=== PATIENT | female | born 1955 | race Caucasian/White ===

== ENCOUNTER 2022-05-08 16:58 | Emergency (ER) | payer OTHER, SELFPAY ==
[2022-05-08 17:07] VITALS: BP 149/81; PULSE 76; RESP 18; TEMP 36.8; O2SAT 98; BMI 21.1
--- NOTE | 2022-05-08 18:03 | CRLHL7_ITS ---
For Patients: As a result of the Century Cures Act, medical imaging exams and procedure reports are released immediately into your electronic medical record. You may view this report before your referring provider. If you have questions, please contact your health care provider. INDICATION: Fall. TECHNIQUE: Head CT without intravenous contrast. Coronal and sagittal formats. COMPARISON: None available. FINDINGS: Small right frontal scalp injury. No intracranial hemorrhage, extra-axial collection, or evidence of acute cortical infarct. Age-appropriate ventricles and sulci. No mass effect or midline shift. The cranium and orbits are intact. Mild mucosal thickening of the bilateral maxillary sinuses. The mastoid air cells are clear. IMPRESSION: Right frontal scalp injury. No acute intracranial findings. Dictated by Charles Ward MD @ 05/08/2022 6:40:28 PM Please note that all CT scans at this facility use dose modulation, iterative reconstruction, and/or weight-based dosing when appropriate to reduce radiation dose to as low as reasonably achievable. Dictated by: Charles Ward MD @ 05/08/2022 18:40:35 (Electronically Signed)
[2022-05-08 18:24] VITALS: BP 138/73; PULSE 68; RESP 16; O2SAT 98
--- NOTE | 2022-05-08 18:50 | ED_ITS ---
HPI - General Adult General Date Seen: 05/08/22 Chief complaint: Head Injury/Pain Stated complaint: fell, hit head Time Seen by Provider: 05/08/22 17:54 Source: patient History of Present Illness HPI narrative: Patient is a 66-year-old woman who about 1 hour prior to presentation says that she tripped on a rug, she fell forward and fairly forcefully hit her head on a door frame. She feels like she was briefly a little out of it although she did not lose consciousness. She does have a large hematoma on the right side of her forehead. She denies severe headache or neck pain. She has not had any vomiting. Her was concerned and wanted her to get checked out. No seizures, altered mentation, neurologic complaints. She does not take any blood thinners. Generally very healthy. She does take a few medications for hyperte nsion. No history of stroke or other neurologic disease. She does not smoke or drink significantly. Related Data Home Medications Medication Instructions Recorded Confirmed albuterol sulfate 90 mcg/actuation INHALATION 05/08/22 aerosol inhaler Allergies Allergy/AdvReac Type Severity Reaction Status Date / Time No Known Drug Allergies Allergy Verified 05/08/22 17:06 Review of Systems Status of ROS: Reports: 10 or more systems reviewed and unremarkable except as noted in History and below [facility] Social History Smoking Status: Never smoker Do you use any of these nicotine containing products: None Second hand tobacco smoke exposure: No How often do you have a drink containing alcohol: 2-3 times a week How many standard drinks containing alcohol do you have on a typical day: 1 or 2 How often do you have six or more drinks on one occasion: Never AUDIT-C Alcohol total score: 3 Non-prescribed substance use: denies use service: No Exam Narrative: Exam Narrative: Vital signs as noted below. In general, an alert, well-appearing patient. Head: Normocephalic, large hematoma on the right side of her scalp. Tenderness in this area, otherwise nontender. Eyes: Pupils are equal reactive. Extraocular movements are full. Conjunctivae are normal. ENT: Mucous membranes are moist. No hemotympanum. No facial trauma aside from above mentioned hematoma. Neck: Supple without lymphadenopathy. Nontender to palpation. Heart: Regular rate and rhythm. No murmur or rub. Lungs: Clear bilaterally. No increased work of breathing, crackles or wheezes. Abdomen: Soft and nontender. No organomegaly. Extremities: Well perfused. No edema. No calf tenderness. Pulses intact. Neurologic: Patient is alert and oriented to person and place. Speech is fluent. Face is symmetric. Moves all extremities equally. Affect: Normal. Skin: Warm and dry. Well perfused. Const: Vital Signs, click to edit/add: Vital Signs - 24 hr 05/08/22 17:07 05/08/22 18:24 Temperature 98.3 F Pulse Rate [Right Pulse Oximeter] 76 68 Respiratory Rate 18 16 Blood Pressure [Ri ght Upper Arm] 149/81 H 138/73 Pulse Oximetry 98 98 Course Course Hospital Course: Discussed with her that overall her presentation is relatively reassuring, but given her age and large hematoma, I did recommend that we do a CT scan to rule out any intracranial bleeding. By my review, CT scan without contrast is negative for intracranial hemorrhage. Scalp hematoma is seen. Final radiology report is negative for intracranial findings. Reviewed use of ice, reviewed that the hematoma may settle with gravity and she might develop some periorbital contusion. This will likely take a couple weeks to resolve, but should resolve with out further intervention. Ibuprofen or Tylenol if needed for pain. Return for signs of more severe head injury such as severe headache, vomiting, altered mentation etc.. Primary care follow-up if needed further concerns. Vital Signs Vital signs: Initial Vital Signs Temperature 98.3 F 05/08/22 17:07 Temperature Source Temporal Artery Scan 05/08/22 17:07 Pulse Rate 76 05/08/22 17:07 Respiratory Rate 18 05/08/22 17:07 Blood Pressure 149/81 H 05/08/22 17:07 Blood Pressure Mean 103 05/08/22 17:07 Blood Pressure Position Sitting 05/08/22 17:07 Pulse Oximetry 98 05/08/22 17:07 Oxygen Delivery Method 05/08/22 17:07 Vital Signs Temperature 98.3 F 05/08/22 17:07 Pulse Rate 76 05/08/22 17:07 Respiratory Rate 18 05/08/22 17:07 Blood Pressure 149/81 H 05/08/22 17:07 Pulse Oximetry 98 05/08/22 17:07 Temperature 98.3 F 05/08/22 17:07 Pulse Rate 68 05/08/22 18:24 Respiratory Rate 16 05/08/22 18:24 Blood Pressure 138/73 05/08/22 18:24 Pulse Oximetry 98 05/08/22 18:24 Discharge Plan Discharge Clinical Impression: Hematoma of frontal scalp Patient Disposition: Home, Self-Care Condition: Stable Instructions: Scalp Contusion in Adults (ED) Additional Instructions: Ice to affected area over the next couple of days will help with swelling. Ibuprofen or Tylenol if needed. Return for signs of more serious head injury such as severe headache, vomiting, confusion. Prescriptions: No Action albuterol sulfate 90 mcg/actuation HFA aerosol inhaler INHALATION 0RF Label Comments: INHALE 2 PUFFS EVERY 4 HOURS NEEDED Follow Up/Referrals: Atif Ayon MD [Primary Care Provider] - Stand Alone Forms: [facility] Inst[facility]
[2022-05-08 19:16] VITALS: BP 135/70; PULSE 78; RESP 16; TEMP 36.8
== END 2022-05-08 19:16 | disposition home or self-care (01) ==
LOC: ED 19:11
PROVIDERS: Emergency Provider Emergency Medicine; PCP Family Medicine
DX: S00.83XA Contusion of other part of head, initial encounter (principal); W01.10XA Fall on same level from slipping, tripping and stumbling with subsequent striking against unspecified object, initial encounter
CPT/HCPCS: 70450; 99283; 99284

== ENCOUNTER 2022-08-20 10:40 | Outpatient (CLI) | payer OTHER, SELFPAY ==
--- OUTSIDE RECORDS SUMMARY | 2022-08-20 08:04 | XMS_ITS | Encounter Summary ---
:1955 Author Organization [facility] Address [address] [place] [address]. [place] [address] Care Team Providers Name Role Phone Sandra Narvaez MD Primary Care Provider Encounter Details Date Type Department Care Team Description 04/03/2022 Travel Social History Tobacco Use Types Packs/Day Years Used Date Smoking Tobacco: Never Smokeless Tobacco: Never Alcohol Use Standard Drinks/Week Comments Yes 0 (1 standard drink = 0.6 oz pure alcoho l) very little Sex Assigned at Date Recorded Not on file COVID-19 Exposure Response Date Recorded In the last 10 days, have you been in contact with No / Unsu re 04/03/2022 10:42 AM CDT someone who was confirmed or suspected to have Coronavirus/COVID-19? documented as of this encounter Plan of Treatment Not on filedocumented as of this encounter Visit Diagnoses Not on filedocumented in this encounter Care Teams Structural Fitter Relationship Specialty Start Date End Date Sandra Narvaez MD PCP - General business teacher 07/11/[address] [phone] documented as of this encounter
--- OUTSIDE RECORDS SUMMARY | 2022-08-20 08:04 | XMS_ITS | Encounter Summary ---
:1955 Author Organization [facility] Address [address] [place] [address]. [place] [address] Care Team Providers Name Role Phone Sandra Narvaez MD Primary Care Provider [phone] Reason for Visit (Routine) - Closed Specialty Diagnoses / Procedures Referred By Contact Refer red To Contact Radiology / Radiology. Procedures Breast Center US BREAST CLIP PLCMT [address], [address] LEFT [address] [place] [address] Phone: Fax: Referral ID Status Reason Start Date Expiration Date Visits Requ ested Visits Authorized [id number] Closed 07/14/2013 07/14/2014 1 1 Encounter Details Date Type Department Care Team Description 07/15/2013 Hospital Encounter [facility] Violet Narvaez Breast lump [facility] MD Julissa [address], [address] [place] [address] [place] [address] [phone] Social History Tobacco Use Types Packs/Day Years Used Date Smoking Tobacco: Never Assessed Sex Assigned at Date Recorded Not on file documented as of this encounter Plan of Treatment Not on filedocumented as of this encounter Procedures Procedure Name Priority Date/Time Associated Diagnosis Comme nts US BREAST CLIP Routine 07/15/2013 1:39 PM Breast lump Results for this PLACEMENT W BIOPSY CDT procedure are in LEFT the results section. documented in this encounter Results US Breast Clip Placement w Biopsy Left (07/15/2013 1:39 PM CDT) Anatomical Region Laterality Modality Breast Left Ultrasound Specimen (Source) Anatomical Location Collection Method / Collectio n Time Received Time / Laterality Volume Addenda Addendum by Kate White MD on 3:36 PM CDT PATHOLOGY CORRELATION AND FOLLOWUP RECOM MENDATION: The pathology diagnosis is benign fibroadenoma; no at[place] or malignancy. This is concordant. I now recommend screening ma mmography in one year unless a new clinical issue develops in the int erim. KATE WHITE MD Narrative 07/15/2013 2:14 PM CDT ULTRASOUND-GUIDED CORE BIOPSY, LEFT BREAST; MARKER PLACEMENT; POST-BIOPSY LEFT DIGITAL MAMMOGRAM - Oct ailyn 2012 INDICATION FOR PROCEDURE: Mildly suspici ous 1 cm hypoechoic nodule in the left breast at 2:30 o'clock 3 cm fro m the nipple. PROCEDURE: ? Approximately 3 mL lido whitney without epinephrine was infiltrated for local anesthetic and a s kin lupis was made through which a 13-gauge trocar was introduced v ia oblique caudocranial approach and its tip was placed adjacent to the lesion. A series of 4 samples were obtained with a 14-gauge co re-cutting needle. A ribbon-shaped metallic marker was deploy ed to savannah the lesion. She tolerated the procedure without difficul ty and there was no immediate complication. Post-biopsy left digital mammogram showe d the marker embedded in the mammographic nodular lesion. KATE WHITE MD Procedure Note Kate White MD - 07/15/2013Forma tting of this note might be different from the original. ULTRASOUND-GUIDED CORE BIOPSY, LEFT [address] ST; MARKER PLACEMENT; POST-BIOPSY LEFT DIGITAL MAMMOGRAM - Oct ailyn 2012 INDICATION FOR PROCEDURE: Mildly suspici ous 1 cm hypoechoic nodule in the left breast at 2:30 o'clock 3 cm fro m the nipple. PROCEDURE: Approximately 3 mL lidocaine without epinephrine was infiltrated for local anesthetic and a s kin lupis was made through which a 13-gauge trocar was introduced v ia oblique caudocranial approach and its tip was placed adjacent to the lesion. A series of 4 samples were obtained with a 14-gauge co re-cutting needle. A ribbon-shaped metallic marker was deploy ed to savannah the lesion. She tolerated the procedure without difficul ty and there was no immediate complication. Post-biopsy left digital mammogram showe d the marker embedded in the mammographic nodular lesion. KATE WHITE MD Sandra Narvaez MD IMG US ORDERABLES documented in this encounter Visit Diagnoses Diagnosis Breast lump Lump or mass in breast documented in this encounter Care Teams Emergency Room Doctor Relationship Specialty Start Date End Date Sandra Narvaez MD PCP - General project production engineer 07/11/[address] [address] documented as of this encounter
--- OUTSIDE RECORDS SUMMARY | 2022-08-20 08:04 | XMS_ITS | Encounter Summary ---
:1955 Author Organization [facility] Address [address] [place] [address]. [place] [address] Care Team Providers Name Role Phone Sandra Narvaez MD Primary Care Provider [phone] Reason for Visit (Routine) - Closed Specialty Diagnoses / Procedures Referred By Contact Refer red To Contact Radiology / Radiology. Diagnoses sb pt[facility] Procedures MA SCREENING BILATERAL W/ ZIGGY [address] [facility], [address] [place] [address] Phone: Fax: Referral ID Status Reason Start Date Expiration Date Visits Requ ested Visits Authorized [id number] Closed 06/25/2017 06/25/2018 1 1 Encounter Details Date Type Department Care Team Description 06/27/2017 Hospital Encounter [facility] for screening [place] [facility] Sandra Costa MD mammogram Center [address] [facility] [address] [facility], [address] [place] [phone] Social History Tobacco Use Types Packs/Day Years Used Date Smoking Tobacco: Never Assessed Sex Assigned at Date Recorded Not on file documented as of this encounter Plan of Treatment Not on filedocumented as of this encounter Procedures Procedure Name Priority Date/Time Associated Diagnosis Comme nts MA SCREENING Routine 06/27/2017 11:00 AM Visit for screening R esults for this BILATERAL W/ ZIGGY CDT mammogram procedure are in the results section. documented in this encounter Results MA Screen Bilateral w/Ziggy (06/27/2017 11:00 AM CDT) Anatomical Region Laterality Modality Breast Bilateral Mammography Specimen (Source) Anatomical Location Collection Method / Collectio n Time Received Time / Laterality Volume Impressions 06/27/2017 11:04 AM CDT IMPRESSION: BI-RADS CATEGORY: 1 - ??Negative. RECOMMENDED FOLLOW-UP: Annual Mammograph y. NURA MOHAMUD MD Narrative 06/27/2017 11:04 AM CDT SCREENING MAMMOGRAM, BILATERAL, DIGITAL w/CAD and TOMOSYNTHESIS, 06/27/2017 11:03 AM BREAST DENSITY: Scattered fibroglandular densities. CLINICAL INFORMATION: ??Encounter for sc reening mammogram for malignant neoplasm of breast, 08/03/2016, 07/13/20 13 FINDINGS: Negative. Stable exam. Screeni ng exam in one year recommended. Procedure Note Nura Mohamud MD - 06/27/2017Formatt ing of this note might be different from the original. SCREENING MAMMOGRAM, BILATERAL, DIGITAL w/CAD and TOMOSYNTHESIS, 06/27/2017 11:03 AM BREAST DENSITY: Scattered fibroglandular densities. CLINICAL INFORMATION: Encounter for scre ening mammogram for malignant neoplasm of breast, 08/03/2016, 07/13/20 13 FINDINGS: Negative. Stable exam. Screeni ng exam in one year recommended. IMPRESSION: BI-RADS CATEGORY: 1 - Negati ve. RECOMMENDED FOLLOW-UP: Annual Mammograph y. NURA MOHAMUD MD Sandra Narvaez MD IMG MAMMOGRAPHY ORDERABLES documented in this encounter Visit Diagnoses Diagnosis Visit for screening mammogram Other screening mammogram documented in this encounter Care Teams Library Services Coordinator Relationship Specialty Start Date End Date Sandra Narvaez MD PCP - General publicity agent 07/11/[address] [place] [address] [place], [place] [address] documented as of this encounter
--- OUTSIDE RECORDS SUMMARY | 2022-08-20 08:04 | XMS_ITS | Encounter Summary ---
:1955 Author Organization [facility] Address [address] [place] [address]. [place] [address] Care Team Providers Name Role Phone Sandra Narvaez MD Primary Care Provider [phone] Encounter Details Date Type Department Care Team Description 07/14/[address] [facility], [facility] [facility] mammogram [facility] Breast [place] Sandra Costa MD [address] [facility], [address] [place] [place] [phone] Social History Tobacco Use Types Packs/Day Years Used Date Smoking Tobacco: Never Assessed Sex Assigned at Date Recorded Not on file documented as of this encounter Plan of Treatment Not on filedocumented as of this encounter Procedures Procedure Name Priority Date/Time Associated Diagnosis Comme [facility] US BREAST YOUNG Routine 07/14/2013 2:42 PM Abnormal mammogram Results for this LEFT CDT procedure are i n the results section. documented in this encounter Results US Breast Young Left (07/14/2013 2:42 PM CDT) Anatomical Region Laterality Modality Breast Left Ultrasound Specimen (Source) Anatomical Location Collection Method / Collectio n Time Received Time / Laterality Volume Impressions 07/14/2013 3:10 PM CDT IMPRESSION: BI-RADS CATEGORY 4, SUSPICIOUS. A 1 cm hypoechoic smoothly marginated lateral left breast nodule corresponds with the screen detected nodule. RECOMMENDATION: She will be scheduled fo r ultrasound-guided core biopsy. KATE WHITE MD Narrative 07/14/2013 3:10 PM CDT ULTRASOUND, left breast - July 14, 2013 REASON FOR EXAM: Recalled from her recen t screening mammogram to evaluate left breast nodule. No reported clinical symptoms. COMPARISON: Yesterday's screening mammog miguel a, and older screening mammograms from 2011 and 2010. FINDINGS: ??Focused ultrasound lateral l eft breast shows at 2:30 o'clock 3 cm from the nipple a very smoo thly marginated [id number] homogeneously hypoechoic 1 cm nodule. Imaging characteristics are low suspicion but th is lesion was not present on older mammograms and therefore it has to be considered as indeterminate and core needle biopsy is now appropriate. I discussed the findings with her and we will schedu le her for that procedure. Procedure Note Kate White MD - 07/14/2013Forma tting of this note might be different from the original. ULTRASOUND, left breast - July 14 REASON FOR EXAM: Recalled from her recen t screening mammogram to evaluate left breast nodule. No reported clinical symptoms. COMPARISON: Yesterday's screening mammog miguel a, and older screening mammograms from 2011 and 2010. FINDINGS: Focused ultrasound lateral lef t breast shows at 2:30 o'clock 3 cm from the nipple a very smoo thly marginated [id number] homogeneously hypoechoic 1 cm nodule. Imaging characteristics are low suspicion but th is lesion was not present on older mammograms and therefore it has to be considered as indeterminate and core needle biopsy is now appropriate. I discussed the findings with her and we will schedu le her for that procedure. IMPRESSION IMPRESSION: BI-RADS CATEGORY 4, SUSPICIO US. A 1 cm hypoechoic smoothly marginated lateral left breast nodule corresponds with the screen detected nodule. RECOMMENDATION: She will be scheduled fo r ultrasound-guided core biopsy. KATE WHITE MD Sandra Narvaez MD IMG US ORDERABLES documented in this encounter Visit Diagnoses Diagnosis Abnormal mammogram Abnormal mammogram, unspecified documented in this encounter Care Teams Quality Tester Relationship Specialty Start Date End Date Sandra Narvaez MD PCP - General hypo dipper 07/11/[address] [place] [address] [place] [phone] documented as of this encounter
--- OUTSIDE RECORDS SUMMARY | 2022-08-20 08:04 | XMS_ITS | Encounter Summary ---
:1955 Author Organization [facility] Address [facility] [place] [address] Care Team Providers Name Role Phone Sandra Narvaez MD Primary Care Provider [phone] Reason for Referral Diagnostic Imaging Mammo (Routine) - Pending Review Specialty Diagnoses / Procedures Referred By Contact Refer red To Contact Diagnoses Breast cancer screening by mammogram Sandra Narvaez MD Procedures MA Screen Bilateral w/Ziggy [address] [address] Referral ID Status Reason Start Date Expiration Date Visits V isits Requested Authorized [id number] Pending 03/26/2022 03/26/2023 1 1 Review Reason for Visit Diagnostic Imaging Mammo (Routine) - Pending Review Specialty Diagnoses / Procedures Referred By Contact Refer red To Contact Diagnoses Breast cancer screening by mammogram Sandra Narvaez MD Procedures MA Screen Bilateral w/Ziggy [address] [address] Referral ID Status Reason Start Date Expiration Date Visits V isits Requested Authorized [id number] Pending 03/26/2022 03/26/2023 1 1 Review Encounter Details Date Type Department Care Team Description 04/03/2022 Hospital Encounter [facility] Breast Sandra Costa MD screening by Center [address] mammogram [address] [place] [phone] Social History Tobacco Use [...] have Coronavirus/COVID-19? documented as of this encounter Medications at Time of Discharge Medication Sig Dispensed Refills Start Date End Date Calcium Take 1 tablet by 0 01/23/2018 Carb-Cholecalciferol mouth daily (CALCIUM + D3) 600-800 MG-UNIT TABSIndications: Hair thinning, Other fatigue fexofenadine (COLEEN) Take 1 tablet (180 90 tablet 3 01/23 180 MG tabletIndications: mg) by mouth daily as Hair thinning, Other needed for allergies fatigue Magnesium Citrate 125 MG Take 250 mg by mouth 0 0 01/23/2018 CAPSIndications: Hair daily thinning, Other fatigue naproxen sodium (ANAPROX) Take by mouth 2 times 60 tablet 0 01/23/2018 220 MG tabletIndications: daily (with meals) Hair thinning, Other fatigue omega 3 1000 MG Take 2 g by mouth 2 90 capsule 0 01/23/2018 CAPSIndications: Hair times daily thinning, Other fatigue progesterone 200 MG/GM Apply topically daily 0 (CMPD) topical creamIndications: Hair thinning, Other fatigue Turmeric 500 MG Take 500 mg by mouth 0 01/23/2018 CAPSIndications: Hair daily thinning, Other fatigue documented as of this encounter Plan of Treatment Not on filedocumented as of this encounter Procedures Procedure Name Priority Date/Time Associated Diagnosis Comme nts MA SCREENING Routine 04/03/2022 11:02 AM Breast cancer Results for this BILATERAL W/ ZIGGY CDT screening by procedure are in mammogram the results section. documented in this encounter Results MA Screen Bilateral w/Ziggy (04/03/2022 11:02 AM CDT) Anatomical Region Laterality Modality Breast Bilateral Mammography Specimen (Source) Anatomical Location Collection Method / Collectio n Time Received Time / Laterality Volume Narrative 04/03/2022 1:00 PM CDT BILATERAL FULL FIELD DIGITAL SCREENING MAMMOGRAM WITH TOMOSYNTHESIS Performed on: 04/03/22 Compared to: 05/04/2021, 05/03/2020, , 06/04/2018, and 06/27/2017 Technique: ??This study was evaluated wi th the assistance of Computer-Aided Detection. ??Breast Tomosynthesis was us ed in interpretation. Findings: The breasts have scattered are as of fibroglandular density. ?? There is no radiographic evidence of mal ignancy. IMPRESSION: ACR BI-RADS Category 1: Nega tive RECOMMENDED FOLLOW-UP: Annual routine sc reening mammogram The results and recommendations of this examination will be communicated to the patient. Sandra Narvaez MD IMG MAMMOGRAPHY ORDERABLES documented in this encounter Visit Diagnoses Diagnosis Breast cancer screening by mammogram documented in this encounter Care Teams Experimental Rocketsled Mechanic Relationship Specialty Start Date End Date Sandra Narvaez MD PCP - General community organization worker 07/11/[address] [phone] documented as of this encounter
--- OUTSIDE RECORDS SUMMARY | 2022-08-20 08:04 | XMS_ITS | Encounter Summary ---
:1955 Author Organization [facility] Address [address] [place] [address]. [place] [address] Care Team Providers Name Role Phone Sandra Barrios MD Primary Care Provider [phone] Reason for Visit (Routine) - Closed Specialty Diagnoses / Procedures Referred By Contact Refer red To Contact Radiology / Radiology. Procedures Breast Center BREAST [address], [address] [place] [address] Phone: Fax: Referral ID Status Reason Start Date Expiration Date Visits Requ ested Visits Authorized [id number] Closed 07/14/2013 07/14/2014 1 1 Encounter Details Date Type Department Care Team Description 07/15/2013 Hospital Encounter [facility] Violet Barrios Breast lump [facility] MD Julissa [address], [address] [facility] [address] [place] [address] [phone] Social History Tobacco Use Types Packs/Day Years Used Date Smoking Tobacco: Never Assessed Sex Assigned at Date Recorded Not on file documented as of this encounter Progress Notes Radha Matthews RN - 07/15/2013 1:53 PM CDT Pt tolerated procedure well and was discharged in satisfactory condition Radha Matthews RN Nurse Navigator [facility] documented in this encounter Plan of Treatment Not on filedocumented as of this encounter Procedures Procedure Name Priority Date/Time Associated Diagnosis Comme nts US BREAST BIOPSY LT Routine 07/15/2013 1:39 PM Breast lump Re sults for this CDT procedure are i n the results section. SURGICAL PATHOLOGY Routine 07/15/2013 1:25 PM Res ults for this EXAM CDT procedure are i n the results section. 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 This is concordant. I now recommend screening ma mmography in one year unless a new clinical issue develops in the int erim. ADRIAN WHITE MD Narrative 07/15/2013 2:14 PM CDT [...] marker embedded in the mammographic nodular lesion. ADRIAN WHITE MD Procedure Note dArian White MD - 07/15/2013Forma tting of this [...] marker embedded in the mammographic nodular lesion. ADRIAN WHITE MD Sandra Barrios MD IMG US ORDERABLES Surgical pathology exam (07/15/2013 1:25 PM CDT) Component Value Ref Test Analysis Performed At [facility] Range Method Time Signature Copath Report Patient Name: JANEL KEN MR#: [id number] Specimen #: [id number] Collected: 07/15/2013 Received: 07/15/2013 Reported: 07/16/2013 16:20 Ordering Phy(s): SANDRA BARRIOS Additional Phy(s): ADRIAN WHITE SPECIMEN(S): Left ultrasound guided breast needle biopsy FINAL DIAGNOSIS: Breast, left, 10 mm nodule at 2:30, 3 cm from nipple, ultras ound-guided needle biopsy - ? 1. ??Fibroadenoma. ? 2. ??Negative for atypia or malignancy. Electronically signed out by: Eunice Hearn M.D. CLINICAL HISTORY: Left breast solid nodule. ??10 mm. ??Intermediate index of s uspicion. GROSS: The specimen received in formalin and labeled left breast ultrasound-guided biopsy at 2:30, 3 cm from nipple, consist s of four yellow-pink 0.1 cm wide needle biopsy cores of soft tissue r anging in length from 1 to 1.5 cm. ??ES, one cassette. ??SA/kd MICROSCOPIC: Microscopic examination is performed. Internal consultation is obtained. /nichol DT/07-16-13 TESTING LAB LOCATION: [address] ??[id number] COLLECTION SITE: Client: [facility] Location: [facility] (R) Specimen Anatomical Collection Method Collection Time Receive d Time (Source) Location / / Volume Laterality 07/15/2013 1:25 PM 3 1:52 CDT PM CDT Sandra Barrios MD LAB - [facility] Performing Organization Address City/State/ZIP Code Phon e Number COPATH documented in this encounter Visit Diagnoses Diagnosis Breast lump Lump or mass in breast documented in this encounter Care Teams Professor Of Social Work Relationship Specialty Start Date End Date Sandra Barrios MD PCP - General finisher wallboard and plasterboard 07/11/12 [address] [facility] [address] [place] [phone] documented as of this encounter
--- OUTSIDE RECORDS SUMMARY | 2022-08-20 08:04 | XMS_ITS | Encounter Summary ---
:1955 Author Organization [facility] Address [address] [place] [address]. [place] [address] Care Team Providers Name Role Phone Sandra Narvaez MD Primary Care Provider Reason for Referral Diagnostic Imaging Mammo (Routine) - Closed Specialty Diagnoses / Procedures Referred By Contact Refer red To Contact Diagnoses Visit for screening mammogram Sandra Narvaez MD Procedures MA Screen Bilateral w/Ziggy [address] [place] [address] Referral ID Status Reason Start Date Expiration Date Visits Requ ested Visits Authorized [id number] Closed 04/20/2021 04/20/2022 1 1 Reason for Visit Diagnostic Imaging Mammo (Routine) - Closed Specialty Diagnoses / Procedures Referred By Contact Refer red To Contact Diagnoses Visit for screening mammogram Sandra Narvaez MD Procedures MA Screen Bilateral w/Ziggy [address] [place] [address] Referral ID Status Reason Start Date Expiration Date Visits Requ ested Visits Authorized [id number] Closed 04/20/2021 04/20/2022 1 1 Encounter Details Date Type Department Care Team Description 05/04/2021 Hospital Encounter [facility] Bhumika Narvaez for screening [facility] Sandra Costa MD mammogram Center [address] [facility], [address] [place] [address] Social History Tobacco Use Types Packs/Day Years Used Date Smoking Tobacco: Never Smokeless Tobacco: Never Alcohol Use Standard Drinks/Week Comments Yes 0 (1 standard drink = 0.6 oz pure alcoho l) very little Sex Assigned at Date Recorded Not on file COVID-19 Exposure Response Date Recorded In the last month, have you been in contact with No / Unsure 05/04/2021 11:20 AM CDT someone who was confirmed or suspected to have Coronavirus / COVID-19? documented as of this encounter Medications at [...] Name Priority Date/Time Associated Diagnosis Comme nts [place] SCREENING Routine 05/04/2021 12:03 PM Visit for screening R esults for this BILATERAL W/ ZIGGY CDT mammogram procedure are in the results section. documented in this encounter Results MA Screen Bilateral w/Ziggy (05/04/2021 12:03 PM CDT) Anatomical Region Laterality Modality Breast Bilateral Mammography Specimen (Source) Anatomical Location Collection Method / Collectio n Time Received Time / Laterality Volume Narrative 05/04/2021 1:17 PM CDT BILATERAL FULL FIELD DIGITAL SCREENING MAMMOGRAM WITH TOMOSYNTHESIS Performed on: 05/04/21 Compared to: 05/03/2020 MA Screen Bilate ral w/Ziggy and 06/04/2018 MA Screen Bilateral w/Ziggy Findings: The breasts have scattered are as of fibroglandular density. This study was evaluated with the assistance of Computer-Aided Detection. ?? Breast Tomosynthesis was used in interpr etation. There is no radiographic evidence of malignancy. IMPRESSION: ACR BI-RADS Category 1: Nega tive RECOMMENDED FOLLOW-UP: Annual routine sc reening mammogram The results and recommendations of this examination will be communicated to the patient. Sandra Narvaez MD IMG MAMMOGRAPHY ORDERABLES documented in this encounter Visit Diagnoses Diagnosis Visit for screening mammogram Other screening mammogram documented in this encounter Care Teams Spring Upholsterer Relationship Specialty Start Date End Date Sandra Narvaez MD PCP - General acrobatic dancer 07/11/[address] [facility] [address] [place] [phone] documented as of this encounter
--- OUTSIDE RECORDS SUMMARY | 2022-08-20 08:04 | XMS_ITS | Encounter Summary ---
:1955 Author Organization [facility] Address [address] [place] [address]. [place] [address] Care Team Providers Name Role Phone Unavailable Primary Care Provider Unavailable Encounter Details Date Type Department Care Team Description 09/17/2006 Results Only [facility] Rica Narvaez, Hospital Results [address] [place] [address] (Wo rk) Social History Tobacco Use Types Packs/Day Years Used Date Smoking Tobacco: Never Assessed Sex Assigned at Date Recorded Not on file documented as of this encounter Plan of Treatment Not on filedocumented as of this encounter Procedures Procedure Name Priority Date/Time Associated Diagnosis Comme nts C MAMMOGRAM, Routine 09/17/2006 11:33 AM Results for this SCREENING SALES CORRESPONDENCE CLERK procedure are i n the results section. documented in this encounter Results MAMMOGRAM, SCREENING (09/17/2006 11:33 AM SALES CORRESPONDENCE CLERK) Anatomical Region Laterality Modality Other Specimen (Source) Anatomical Collection Method Collection Time Re ceived Time Location / / Volume Laterality 09/17/2006 11:33 AM SALES CORRESPONDENCE CLERK Impressions 09/18/2006 2:54 PM SALES CORRESPONDENCE CLERK Exam: Bilateral screening mammography History/Comparison: ??ROUTINE 08/06/05, 10/29/00 Breast parenchyma: heterogeneously dense Findings: Negative. . ?? Impression: Category 1. Negative. This exam was evaluated with the assista nce of computer aided detection ??(CAD). Sandra Narvaez MD SPECIAL IMAGING STUDIES documented in this encounter Visit Diagnoses Not on filedocumented in this encounter
--- OUTSIDE RECORDS SUMMARY | 2022-08-20 08:04 | XMS_ITS | Encounter Summary ---
:1955 Author Organization [facility] Address [address] [place] [address]. [place] [address] Care Team Providers Name Role Phone Sandra Narvaez MD Primary Care Provider [phone] Reason for Visit (Routine) - Closed Specialty Diagnoses / Procedures Referred By Contact Refer red To Contact Radiology / Radiology. Diagnoses Prev epic ziggy info given Breast Center Procedures MA SCREENING DIGITAL BILATERAL [address] [facility], [address] [place] [address] Phone: Fax: Referral ID Status Reason Start Date Expiration Date Visits Requ ested Visits Authorized [id number] Closed 07/21/2015 07/20/2016 1 1 Encounter Details Date Type Department Care Team Description 08/01/2015 Hospital Encounter [facility] for screening [facility] Sandra Costa MD mammogram Center [address] [facility] [address] [place] [address] Social History Tobacco Use Types Packs/Day Years Used Date Smoking Tobacco: Never Assessed Sex Assigned at Date Recorded Not on file documented as of this encounter Plan of Treatment Not on filedocumented as of this encounter Procedures Procedure Name Priority Date/Time Associated Diagnosis Comme nts MA SCREENING Routine 08/01/2015 2:20 PM Visit for screening Re sults for this BILATERAL W/ ZIGGY CDT mammogram procedure are in the results section. documented in this encounter Results MA Screen Bilateral w/Ziggy (08/01/2015 2:20 PM CDT) Anatomical Region Laterality Modality Breast Bilateral Mammography Specimen (Source) Anatomical Location Collection Method / Collectio n Time Received Time / Laterality Volume Impressions 08/01/2015 2:26 PM CDT IMPRESSION: BI-RADS CATEGORY: 2 - Benign. RECOMMENDED FOLLOW-UP: Annual Mammograph y. ?? NURA MOHAMUD MD Narrative 08/01/2015 2:26 PM CDT SCREENING MAMMOGRAM, BILATERAL, DIGITAL w/CAD and TOMOSYNTHESIS, 08/01/2015 2:25 PM BREAST DENSITY: Scattered fibroglandular densities. CLINICAL INFORMATION: ??Encounter for sc reening mammogram for malignant neoplasm of breast, 07/13/2013, 05/23/20 10 FINDINGS: Stable nodule left upper-outer breast. Bilateral exam otherwise unremarkable. Procedure Note Nura Mohamud MD - 08/01/2015Formatt ing of this note might be different from the original. SCREENING MAMMOGRAM, BILATERAL, DIGITAL w/CAD and TOMOSYNTHESIS, 08/01/2015 2:25 PM BREAST DENSITY: Scattered fibroglandular densities. CLINICAL INFORMATION: Encounter for scre ening mammogram for malignant neoplasm of breast, 07/13/2013, 05/23/20 10 FINDINGS: Stable nodule left upper-outer breast. Bilateral exam otherwise unremarkable. IMPRESSION IMPRESSION: BI-RADS CATEGORY: 2 - Benign . RECOMMENDED FOLLOW-UP: Annual Mammograph y. NURA MOHAMUD MD Sandra Narvaez MD IMG MAMMOGRAPHY ORDERABLES documented in this encounter Visit Diagnoses Diagnosis Visit for screening mammogram Other screening mammogram documented in this encounter Care Teams Psychology Teacher Relationship Specialty Start Date End Date Sandra Narvaez MD PCP - General manager pet 07/11/[address] [place] [address] documented as of this encounter
--- OUTSIDE RECORDS SUMMARY | 2022-08-20 08:04 | XMS_ITS | Encounter Summary ---
:1955 Author Organization [facility] Address [address] [place] [address]. [place] [address] Care Team Providers Name Role Phone Unavailable Primary Care Provider Unavailable Encounter Details Date Type Department Care Team Description 07/06/2011 Results Only [facility] Rica Narvaez, Hospital Results [address] [place] [address] (Wo rk) Social History Tobacco Use Types Packs/Day Years Used Date Smoking Tobacco: Never Assessed Sex Assigned at Date Recorded Not on file documented as of this encounter Plan of Treatment Not on filedocumented as of this encounter Procedures Procedure Name Priority Date/Time Associated Comments Diagnosis MA DIAGNOSTIC Routine 07/06/2011 11:16 AM Results for this DIGITAL RIGHT CDT procedure are in the results section. documented in this encounter Results Mammo diagnostic Digital right* (07/06/2011 11:16 AM CDT) Anatomical Region Laterality Modality Breast Right Other Specimen (Source) Anatomical Collection Method Collection Time Re ceived Time Location / / Volume Laterality 07/06/2011 11:16 AM CDT Impressions 07/06/2011 3:35 PM CDT DIAGNOSTIC MAMMOGRAM, RIGHT, DIGITAL w/C AD - July 06, 2011 HISTORY: Recalled from screening mammogr am regarding a 1.0 cm round asymmetry in the right breast. COMPARISON: Screening mammograms 06/29/20 11, 05/23/2010, 02/21/2009, 02/17/2008. FINDINGS: Diagnostic views of the right breast were obtained. Screening detected asymmetry is not rede monstrated on today's repeat full field views. Similarly, the area in question effaces completely with compression. No persistent mammogra phic abnormality to suggest malignancy. IMPRESSION: BI-RADS 1, NEGATIVE. No evidence of malignancy. Screening det ected asymmetry reflects summation artifact. As long as the patie nt's physical exam remains stable, routine annual screening mammogr aphy is recommended. The results and recommendation were communic ated to the patient at the conclusion of today's appointment. RECOMMENDATION: Annual screening mammogr aphy. Sandra Narvaez MD IMG MAMMOGRAPHY ORDERABLES documented in this encounter Visit Diagnoses Not on filedocumented in this encounter
--- OUTSIDE RECORDS SUMMARY | 2022-08-20 08:04 | XMS_ITS | Encounter Summary ---
:1955 Author Organization [facility] Address [address] [place] [address]. [place] [address] Care Team Providers Name Role Phone Sandra Narvaez MD Primary Care Provider [phone] Reason for Visit (Routine) - Closed Specialty Diagnoses / Procedures Referred By Contact Refer red To Contact Radiology / Radiology. Procedures Breast Center MA SCREENING DIGITAL [address], [address] [place] [address] Phone: Fax: Referral ID Status Reason Start Date Expiration Date Visits Requ ested Visits Authorized [id number] Closed 07/06/2013 07/06/2014 1 1 Encounter Details Date Type Department Care Team Description 07/13/2013 Hospital Encounter [facility] Zohreh Narvaez gynecological [facility] Sandra Costa MD examination Center [address] [place] [address] [place] [address] Social History Tobacco Use Types Packs/Day Years Used Date Smoking Tobacco: Never Assessed Sex Assigned at Date Recorded Not on file documented as of this encounter Plan of Treatment Not on filedocumented as of this encounter Procedures Procedure Name Priority Date/Time Associated Diagnosis Comme nts MA SCREENING Routine 07/13/2013 11:45 Routine gynecological Re sults for this DIGITAL BILATERAL AM CDT examination procedure are in the results section. documented in this encounter Results MA Screening Digital Bilateral (07/13/2013 11:45 AM CDT) Anatomical Region Laterality Modality Breast Bilateral Mammography Specimen (Source) Anatomical Location Collection Method / Collectio n Time Received Time / Laterality Volume Impressions 07/13/2013 12:32 PM CDT IMPRESSION: BI-RADS CATEGORY 0, INCOMPLETE, NEED ADDITIONAL IMAGING EVALUATION. RECOMMENDATION: Ultrasound of the left b reast; additional mammographic views may also be necessary . We will attempt to contact the patient to return for further imagin g assessment. KATE WHITE MD Narrative 07/13/2013 12:32 PM CDT SCREENING MAMMOGRAM, BILATERAL, DIGITAL w/ CAD ??- ??July 13, 2013 BREAST SYMPTOMS: None reported. COMPARISON: Screening mammograms dating back to 2007 most recently dated 07/11/2012. PARENCHYMAL PATTERN: Scattered fibroglan dular densities. COMMENTS: Obscured lateral left breast n odular asymmetry warrants further evaluation beginning with ultras ound because it could be a cyst; additional mammographic views may also be needed. Right breast is unremarkable. Procedure Note Kate White MD - 07/13/2013Forma tting of this note might be different from the original. SCREENING MAMMOGRAM, BILATERAL, DIGITAL w/ CAD - July 13, 2013 BREAST SYMPTOMS: None reported. COMPARISON: Screening mammograms dating back to 2007 most recently dated 07/11/2012. PARENCHYMAL PATTERN: Scattered fibroglan dular densities. COMMENTS: Obscured lateral left breast n odular asymmetry warrants further evaluation beginning with ultras ound because it could be a cyst; additional mammographic views may also be needed. Right breast is unremarkable. IMPRESSION IMPRESSION: BI-RADS CATEGORY 0, INCOMPLE TE, NEED ADDITIONAL IMAGING EVALUATION. RECOMMENDATION: Ultrasound of the left b reast; additional mammographic views may also be necessary . We will attempt to contact the patient to return for further imagin g assessment. KATE WHITE MD Sandra Narvaez MD IMG MAMMOGRAPHY ORDERABLES documented in this encounter Visit Diagnoses Diagnosis Routine gynecological examination documented in this encounter Care Teams Navigation Teacher Relationship Specialty Start Date End Date Sandra Narvaez MD PCP - General insurance sales associate 07/11/[address] [place] [phone] documented as of this encounter
--- OUTSIDE RECORDS SUMMARY | 2022-08-20 08:04 | XMS_ITS | Encounter Summary ---
:1955 Author Organization [facility] Address [address] [place] [address]. [place] [address] Care Team Providers Name Role Phone Unavailable Primary Care Provider Unavailable Encounter Details Date Type Department Care Team Description 05/23/2010 Results Only [facility] Rica Narvaez, [facility] Results [address] [place] [address] (Wo rk) Social History Tobacco Use Types Packs/Day Years Used Date Smoking Tobacco: Never Assessed Sex Assigned at Date Recorded Not on file documented as of this encounter Plan of Treatment Not on filedocumented as of this encounter Procedures Procedure Name Priority Date/Time Associated Diagnosis Comme [facility] MAMMO SCREEN Routine 05/23/2010 1:16 PM Result s for this BILATATERAL, INCL CDT procedure are in CAD WHEN PERF the results section. documented in this encounter Results SCREENING MAMMOGRAPHY DIGITAL (BILAT) (05/23/2010 1:16 PM CDT) Anatomical Region Laterality Modality Other Specimen (Source) Anatomical Collection Method Collection Time Re ceived Time Location / / Volume Laterality 05/23/2010 1:16 PM CDT Impressions 05/23/2010 6:39 PM CDT SCREENING MAMMOGRAM, BILATERAL, DIGITAL w/CAD - May 23, 2010 BREAST SYMPTOMS: None reported. ?? COMPARISON: 02/21/2009, 12/07/2002. ?? PARENCHYMAL PATTERN: Heterogeneously den se. COMMENTS: No findings of suspicion for m alignancy. IMPRESSION: BI-RADS 1, NEGATIVE. Sandra Narvaez MD SPECIAL IMAGING STUDIES documented in this encounter Visit Diagnoses Not on filedocumented in this encounter
--- OUTSIDE RECORDS SUMMARY | 2022-08-20 08:04 | XMS_ITS | Encounter Summary ---
:1955 Author Organization [facility] Address [address] [place] [address]. [place] [address] Care Team Providers Name Role Phone Sandra Narvaez MD Primary Care Provider [phone] Reason for Visit (Routine) - Closed Specialty Diagnoses / Procedures Referred By Contact Refer red To Contact Radiology / Radiology. Procedures Breast Center MA POST PROCEDURE LEFT [address], [address] [place] [address] Phone: Fax: Referral ID Status Reason Start Date Expiration Date Visits Requ ested Visits Authorized [id number] Closed 07/14/2013 07/14/2014 1 1 Encounter Details Date Type Department Care Team Description 07/15/2013 Hospital Encounter [facility] Violet Narvaez Breast lump [facility] Breast [place] MD Julissa [address] [facility], [address] [facility] [address] [place] [address] [phone] Social History Tobacco Use Types Packs/Day Years Used Date Smoking Tobacco: Never Assessed Sex Assigned at Date Recorded Not on file documented as of this encounter Plan of Treatment Not on filedocumented as of this encounter Procedures Procedure Name Priority Date/Time Associated Diagnosis Comme nts MA POST PROCEDURE Routine 07/15/2013 2:11 PM Breast lump Resu lts for this LEFT CDT procedure are i n the results section. documented in this encounter Results MA Post Procedure Left (07/15/2013 2:11 PM CDT) Anatomical Region Laterality Modality Breast Left Mammography Specimen (Source) Anatomical Location Collection Method [...] breast documented in this encounter Care Teams Handtools Repairer Relationship Specialty Start Date End Date Sandra Narvaez MD PCP - General acds block 1 operator 07/11/12 [address] [phone] documented as of this encounter
--- OUTSIDE RECORDS SUMMARY | 2022-08-20 08:04 | XMS_ITS | Encounter Summary ---
:1955 Author Organization [facility] Address [address] [place] [address]. [place] [address] Care Team Providers Name Role Phone Sandra Narvaez MD Primary Care Provider [phone] Charley Armstrong MD Unavailable [phone] Charley Armstrong MD Unavailable [phone] Reason for Referral Consultation - Closed Specialty Diagnoses / Procedures Referred By Contact Refer red To Contact Diagnoses Hair thinning Charley Armstrong MULTIPLE LOCATIONS MD [facility] [address] [place] [address] Referral ID Status Reason Start Date Expiration Date Visits Requ ested Visits Authorized [id number] Closed 01/23/2018 01/23/2019 1 1 Reason for Visit Reason Comments Establish Care Hair Loss Encounter Details Date Type Department Care Team Description 01/23/2018 Office Visit [facility] Patti Hair rad liing (Primary Dx); [facility] [place] Charley Fuentes MD Other fatigue [address] [place] [address] [id number] [phone] Social History Tobacco Use Types Packs/Day Years Used Date Smoking Tobacco: Never Smokeless Tobacco: Never Alcohol Use Standard Drinks/Week Comments Yes 0 (1 standard drink = 0.6 oz pure alcoho l) very little Sex Assigned at Date Recorded Not on file documented as of this encounter Last Filed Vital Signs Vital Sign Reading Time Taken Comments Blood Pressure 148/76 01/23/2018 1:35 PM CDT Pulse 84 01/23/2018 1:35 PM CDT Temperature 36.7 ??C (98.1 ??F) 01/23/2018 1:35 PM CDT Respiratory Rate 12 01/23/2018 1:35 PM CDT Oxygen Saturation 96% 01/23/2018 1:35 PM CDT Inhaled Oxygen Concentration - - Weight 58.7 kg (129 lb 6.4 oz) 01/23/2018 1:35 PM CDT Height 165.7 cm (5' 5.25) 01/23/2018 1:35 PM CDT Body Mass Index 21.37 01/23/2018 1:35 PM CDT documented in this encounter Patient Instructions Patient InstructionsCharley Armstrong MD - 01/23/2018 1:00 PM CDT Plan: 1. Labs today 2. Dermatology referral 3. We can consider Spironolactone in the future if you agree to frequent labs documented in this encounter Progress Notes Charley Armstrong MD - 01/23/2018 1:[address] Schultz's note Patient's instructions / PLAN: Plan: 1. Labs today 2. Dermatology referral 3. We can consider Spironolactone in the future if you agree to frequent labs ASSESSMENT & PLAN: (L65.9) Hair thinning (primary encounter diagnosis) Comment: We discussed about spironolactone. She does not want to be committed to frequent blood test. We will check the thyroid and iron since this also can be associated with hair thinning. If the hair thinning persists, she will see dermatology. Plan: fexofenadine (COLEEN) 180 MG tablet, omega 3 1000 MG CAPS, Turmeric 500 MG CAPS, progesterone 200 MG/GM (CMPD) topical cream, Calcium Carb-Cholecalciferol (CALCIUM + D3) 600-800 MG-UNIT TABS, Magnesium Citrate 125 MG CAPS, naproxen sodium (ANAPROX) 220 MG tablet, TSH with free T4 reflex, CBC with platelets, Ferritin, Iron and iron binding capacity, Folate, Vitamin B12, Comprehensive metabolic panel, DERMATOLOGY REFERRAL (R53.83) Other fatigue Comment: Plan: fexofenadine (COLEEN) 180 MG tablet, omega 3 1000 MG CAPS, Turmeric 500 MG CAPS, progesterone 200 MG/GM (CMPD) topical cream, Calcium Carb-Cholecalciferol (CALCIUM + D3) 600-800 MG-UNIT TABS, Magnesium Citrate 125 MG CAPS, naproxen sodium (ANAPROX) 220 MG tablet, TSH with free T4 reflex, CBC with platelets, Ferritin, Iron and iron binding capacity, Folate, Vitamin B12, Comprehensive metabolic panel Chief complaint: Hair thinning SUBJECTIVE: Janel Ken is a 62 year old female who presents to clinic today for the following health issues: She usually has thick hair. Her hairdresser noticed that her hair has been thinning over the last year. She noticed some hair thinning of the forehead. She denies any scalp symptoms, no itching no dandruff. She denies any stress in the last month physically or emotionally. Normal labs at work labs: chol, TSH Tired, thinning of the eyebrows as well -she noticed 2 or 3 years ago. Pt reports normal pap smear completed approximately 03/[address] [facility]. Normal colonoscopy done 03/2017 through [facility]. Review of Systems: ROS: negative for fever, chills, cough, wheezes, chest pain, shortness of breath, vomiting, abdominal pain, leg swelling OBJECTIVE: Physical exam: Blood pressure 148/76, pulse 84, temperature 98.1 ??F (36.7 ??C), temperature source Oral, resp. rate 12, height 5' 5.25 (1.657 m), weight 129 lb 6.4 oz (58.7 kg), SpO2 96 %, not currently . NAD, appears comfortable Skin: no rashes Scalp with no skin lesions. No areas of alopecia. She does have new hair coming up Neck: supple, no JVD,No thyroidmegaly. Lymph nodes nonpalpable cervical and supraclavicular. Chest: clear to auscultation bilaterally, good respiratory effort Heart: S1 S2, RRR, no mgr appreciated Abdomen: soft, not tender, Extremities: no edema, Neurologic: A, Ox3, no focal signs appreciated PMHx: reviewed History reviewed. No pertinent past medical history. PSHx: reviewed History reviewed. No pertinent surgical history. Meds: reviewed Current Outpatient Prescriptions Medication Sig Dispense Refill ??? fexofenadine (COLEEN) 180 MG tablet Take 1 tablet (180 mg) by mouth daily as needed for allergies 90 tablet 3 ??? omega 3 1000 MG CAPS Take 2 g by mouth 2 times daily 90 capsule ??? Turmeric 500 MG CAPS Take 500 mg by mouth daily ??? progesterone 200 MG/GM (CMPD) topical cream Apply topically daily ??? Calcium Carb-Cholecalciferol (CALCIUM + D3) 600-800 MG-UNIT TABS Take 1 tablet by mouth daily ??? Magnesium Citrate 125 MG CAPS Take 250 mg by mouth daily ??? naproxen sodium (ANAPROX) 220 MG tablet Take by mouth 2 times daily (with meals) 60 tablet Soc Hx: reviewed Fam Hx: reviewed Charley Schultz MD Internal Medicine documented in this encounter Nursing Notes Alice Matamoros CMA - 01/23/2018 1:00 PM CDT Chief Complaint Patient presents with ??? Establish Care ??? Hair Loss Initial BP 148/76 (BP Location: Right arm, Patient Position: Chair, Cuff Size: Adult Regular) Pulse 84 Temp 98.1 ??F (36.7 ??C) (Oral) Resp 12 Ht 5' 5.25 (1.657 m) Wt 129 lb 6.4 oz (58.7 kg) SpO2 96% ? No BMI 21.37 kg/m2 Estimated body mass index is 21.37 kg/(m^2) as calculated from the following: Height as of this encounter: 5' 5.25 (1.657 m). Weight as of this encounter: 129 lb 6.4 oz (58.7 kg). Medication Reconciliation: complete Alice Matamoros CMA documented in this encounter Plan of Treatment Scheduled Referrals Name Type Priority Associated Diagnoses Order S chedule DERMATOLOGY REFERRAL Referral Routine Hair thinning Ordere d: 01/23/2018 documented as of this encounter Procedures Procedure Name Priority Date/Time Associated Comments Diagnosis TSH WITH FREE T4 Routine 01/23/2018 2:09 PM Hair thinnin g Results for this REFLEX CDT Other fatigue procedure are in the results section. IRON AND IRON BINDING Routine 01/23/2018 2:09 PM Hair th inning Results for this CAPACITY CDT Other fatigue procedure are in the results section. FOLATE Routine 01/23/2018 2:09 PM Hair thinning Results for this CDT Other fatigue procedure are in the results section. FERRITIN Routine 01/23/2018 2:09 PM Hair thinning Results for this CDT Other fatigue procedure are in the results section. COMPREHENSIVE Routine 01/23/2018 2:09 PM Hair thinning Results for this METABOLIC PANEL CDT Other fatigue procedure a re in the results section. VITAMIN B12 Routine 01/23/2018 2:09 PM Hair thinning Results for this CDT Other fatigue procedure are in the results section. CBC WITH PLATELETS Routine 01/23/2018 2:09 PM Hair thinn ing Results for this CDT Other fatigue procedure are in the results section. documented in this encounter Results (ABNORMAL) Comprehensive metabolic panel (01/23/2018 2:09 PM CDT) P athologist Signature Sodium 139 133 - 144 01/24/2018 [facility] mmol/L 8:25 AM T [facility] Potassium 3.9 3.4 - 5.3 01/24/2018 [facility] mmol/L 8:25 AM T [facility] Chloride 106 94 - 109 01/24/2018 [facility] mmol/L 8:25 AM T [facility] Carbon Dioxide 26 20 - 32 01/24/2018 [facility] mmol/L 8:25 AM T [facility] Anion Gap 7 3 - 14 01/24/2018 [facility] mmol/L 8:25 AM [facility] Glucose 86 70 - 99 01/24/2018 [facility] mg/dL 8:25 AM T [facility] Comment: Non Fasting Urea Nitrogen 15 7 - 30 mg/dL 01/24/2018 8:25 AM T [facility] Creatinine 0.71 0.52 - 1.04 mg/dL 01/24/2018 8:25 AM CD T [facility] GFR Estimate 84 >60 mL/min/1.7m2 01/24/2018 8:25 AM C DT [facility] Comment: Non GFR Calc GFR Estimate If >90 >60 mL/min/1.7m2 01/24/2018 8:25 A M [facility] Black [facility] Comment: GFR Calc Calcium 8.3 (L) 8.5 - 10.1 01/24/2018 8:25 AM [facility] mg/dL [facility] Bilirubin Total 0.2 0.2 - 1.3 mg/dL 01/24/2018 8:25 AM [facility] Albumin 3.5 3.4 - 5.0 g/dL 01/24/2018 8:25 AM [facility] Protein Total 7.3 6.8 - 8.8 g/dL 01/24/2018 8:25 AM FA [facility] Alkaline Phosphatase 49 40 - 150 U/L 01/24/2018 8:25 AM [facility] ALT 55 (H) 0 - 50 U/L 01/24/2018 8:25 AM [facility] AST 35 0 - 45 U/L 01/24/2018 8:25 AM [facility] Specimen Anatomical Collection Method Collection Time Receive d Time (Source) Location / / Volume Laterality Blood specimen 01/23/2018 2:09 PM 018 2:14 (specimen) CDT PM CDT Charley Armstrong MD LAB - BLOOD ORDERABLE S Performing Organization Address City/State/ZIP Code Phon e Number [facility] [address] [place] [address] [facility] [address] [place] [address], U [phone] Vitamin B12 (01/23/2018 2:09 PM CDT) athologist Signature Vitamin B12 277 080 - 204 01/23/2018 [facility] pg/mL 7:35 PM CDT [facility] Specimen Anatomical Collection Method Collection Time Receive d Time (Source) Location / / Volume Laterality Blood specimen 01/23/2018 2:09 PM 018 2:14 (specimen) CDT PM CDT Charley Armstrong MD LAB - BLOOD ORDERABLE S Performing Organization Address City/State/ZIP Code Phon e Number [facility] [address] [place] [address] [facility] Folate (01/23/2018 2:09 PM CDT) P athologist Signature Folate 23.7 >5.4 ng/mL 01/23/2018 [facility] 8:35 PM CDT [facility] Specimen Anatomical Collection Method Collection Time Receive d Time (Source) Location / / Volume Laterality Blood specimen 01/23/2018 2:09 PM 018 2:14 (specimen) CDT PM CDT Charley Armstrong MD LAB - BLOOD ORDERABLE S Performing Organization Address City/State/ZIP Code Phon e Number [facility] [address] [place], [place] [id number] [place] [address] (ABNORMAL) Iron and iron binding capacity (01/23/2018 2:09 PM CDT) Analysis Performed At Patho logist Time Signature Iron 28 (L) 35 - 180 01/24/2018 [facility] ug/dL 8:27 AM CDT [facility] Iron Binding 348 240 - 430 01/24/2018 [facility] Cap ug/dL 8:35 AM CDT [facility] Iron Saturation 8 (L) 15 - 46 % 01/24/2018 [facility] Index 8:35 AM CDT [facility] Specimen Anatomical Collection Method Collection Time Receive d Time (Source) Location / / Volume Laterality Blood specimen 01/23/2018 2:09 PM 018 2:14 (specimen) CDT PM CDT Charley Armstrong MD LAB - BLOOD ORDERABLE S Performing Organization Address City/State/ZIP Code Phon e Number [facility] [address] [place] [address] [facility] [address] [place], [place] [address] [facility] [address] [place] [address], [place] [phone] Ferritin (01/23/2018 2:09 PM CDT) athologist Signature Ferritin 19 8 - 252 01/24/2018 [facility] ng/mL 8:27 AM CDT [facility] Specimen Anatomical Collection Method Collection Time Receive d Time (Source) Location / / Volume Laterality Blood specimen 01/23/2018 2:09 PM 018 2:14 (specimen) CDT PM CDT Charley Armstrong MD LAB - BLOOD ORDERABLE S Performing Organization Address City/State/ZIP Code Phon e Number [facility] [address] [place] [address] CBC with platelets (01/23/2018 2:09 PM CDT) athologist Signature WBC 5.7 4.0 - 11.0 01/23/2018 [facility] 10e9/L 4:52 PM CDT [facility] RBC Count 4.24 3.8 - 5.2 01/23/2018 [facility] 10e12/L 4:52 PM CDT [facility] Hemoglobin 12.6 11.7 - 01/23/2018 [facility] 15.7 g/dL 4:52 PM CDT [facility] Hematocrit 37.3 35.0 - 01/23/2018 [facility] 47.0 % 4:52 PM CDT [facility] MCV 88 78 - 100 01/23/2018 [facility] fl 4:52 PM CDT [facility] MCH 29.7 26.5 - 01/23/2018 [facility] 33.0 pg 4:52 PM CDT [facility] MCHC 33.8 31.5 - 01/23/2018 [facility] 36.5 g/dL 4:52 PM CDT [facility] RDW 12.4 10.0 - 01/23/2018 [facility] 15.0 % 4:52 PM CDT [facility] Platelet Count 323 150 - 450 01/23/2018 [facility] 10e9/L 4:52 PM CDT [facility] Specimen Anatomical Collection Method Collection Time Receive d Time (Source) Location / / Volume Laterality Blood specimen 01/23/2018 2:09 PM 018 2:14 (specimen) CDT PM CDT Charley Armstrong MD LAB - BLOOD ORDERABLE S Performing Organization Address City/[facility]/ZIP Code Phon e Number [facility] [address] [place], [place] [address] [address] TSH with free T4 reflex (01/23/2018 2:09 PM CDT) P athologist Signature TSH 0.81 0.40 - 4.00 01/24/2018 [facility] mU/L 8:31 AM CDT [facility] Specimen Anatomical Collection Method Collection Time Receive d Time (Source) Location / / Volume Laterality Blood specimen 01/23/2018 2:09 PM 018 2:14 (specimen) CDT PM CDT Charley Armstrong MD LAB - BLOOD ORDERABLE S Performing Organization Address City/[facility]/ZIP Code Phon e Number [facility] [address] [place] [address] documented in this encounter Visit Diagnoses Diagnosis Hair thinning - Primary Alopecia, unspecified Other fatigue documented in this encounter Care Teams Shoveler Relationship Specialty Start Date End Date Sandra Narvaez MD PCP - General voice over announcer 07/11/[address] [phone] Charley Armstrong MD PCP - Assigned PCP 01/02/18 12/16/18 [address] [place], [place] [phone] Charley Armstrong MD Assigned PCP 01/02/18 01/28/21 [address] [place] [address] documented as of this encounter
--- OUTSIDE RECORDS SUMMARY | 2022-08-20 08:04 | XMS_ITS | Encounter Summary ---
:1955 Author Organization [facility] Address [address] [place] [address]. [place] [address] Care Team Providers Name Role Phone Sandra Narvaez MD Primary Care Provider [phone] Encounter Details Date Type Department Care Team Description 05/04/2021 Travel Social History Tobacco Use Types Packs/Day [...] / COVID-19? documented as of this encounter Plan of Treatment Not on filedocumented as of this encounter Visit Diagnoses Not on filedocumented in this encounter Care Teams Computer Scientist Relationship Specialty Start Date End Date Sandra Narvaez MD PCP - General change booth attendant 07/11/[address] [facility] [address] [place] [phone] documented as of this encounter
--- OUTSIDE RECORDS SUMMARY | 2022-08-20 08:04 | XMS_ITS | Clinical Summary ---
:1955 Author Organization [facility] Address [address] [place] [address]. [place] [address] Care Team Providers Name Role Phone Sandra Narvaez MD Primary Care Provider [phone] Allergies No known active allergies Medications Medication Sig Dispensed Refills Start Date End Date Status fexofenadine Take 1 tablet (180 90 tablet 3 01/23/2018 Active (COLEEN) 180 MG mg) by mouth daily tabletIndications: as needed for Hair thinning, Other allergies fatigue omega 3 1000 MG Take 2 g by mouth 90 capsule 0 01/23/2018 Active CAPSIndications: Hair 2 times daily thinning, Other fatigue Turmeric 500 MG Take 500 mg by 0 01/23/2018 Active CAPSIndications: Hair mouth daily thinning, Other fatigue progesterone 200 Apply topically 0 01/23/2018 Active MG/GM (CMPD) topical daily creamIndications: Hair thinning, Other fatigue Calcium Take 1 tablet by 0 01/23/2018 Ac tive Carb-Cholecalciferol mouth daily (CALCIUM + D3) 600-800 MG-UNIT TABSIndications: Hair thinning, Other fatigue Magnesium Citrate 125 Take 250 mg by 0 01/23/2018 Active MG CAPSIndications: mouth daily Hair thinning, Other fatigue naproxen sodium Take by mouth 2 60 tablet 0 01/23/2018 Active (ANAPROX) 220 MG times daily (with tabletIndications: meals) Hair thinning, Other fatigue Immunizations Name Administration Dates Next Due Td (Adult), Adsorbed 03/22/2017 Family History Medical History Relation Comments Hyperlipidemia Brother 1 Hyperlipidemia Brother 2 Hyperlipidemia Brother 3 Hyperlipidemia Brother 4 No Known Problems Daughter Coronary Artery Disease Father Quadruple bypass and valve replacement Diabetes Father Type 2 Lung Cancer Maternal Grandfather smoker No Known Problems Maternal Grandmother Arthritis Mother Liver Disease Mother Primary biliary live r disease Osteoporosis Mother Myocardial Infarction Paternal Grandfather No Known Problems Paternal Grandmother Hyperlipidemia Sister 1 Lupus Sister 1 Hyperlipidemia Sister 2 Hyperlipidemia Sister 3 Hypertension Son Relation Status Comments Brother 1 Alive Brother 2 Alive Brother 3 Alive Brother 4 Alive Daughter Alive Father (Age 88) Maternal Grandfather Maternal Grandmother Mother Paternal Grandfather Paternal Grandmother Sister 1 Alive Sister 2 Alive Sister 3 Alive Son Alive Social History Tobacco Use Types Packs/Day Years Used Date Smoking Tobacco: Never Smokeless Tobacco: Never Alcohol Use Standard Drinks/Week Comments Yes 0 (1 standard drink = 0.6 oz pure alcoho l) very little Sex Assigned at Date Recorded Not on file Last Filed Vital Signs Vital Sign Reading [...] Mass Index 21.37 01/23/2018 1:35 PM CDT Plan of Treatment Health Maintenance Due Date Last Done Comments ANNUAL REVIEW OF HM ORDERS 1955 CT COLONOGRAPHY 1955 FIT-DNA (Cologuard) 1955 FIT 1955 FLEX SIG 1955 HEPATITIS B IMMUNIZATION (1 1955 of 3 - 3-dose series) YEARLY PREVENTIVE VISIT 1955 HIV SCREENING 1972 HEPATITIS C SCREENING 1975 LIPID 2002 DTAP/TDAP/TD IMMUNIZATION 03/23/2017 03/22/2017, 03/22/2017 (1 - Tdap) COLONOSCOPY 08/10/2018 08/10/2008 COLORECTAL CANCER SCREENING 08/10/2018 PAP 03/14/2020 03/14/2017, 02/15/2015 PHQ-2 (once per calendar 10/14/2021 01/23/2018 year) COVID-19 Vaccine (4 - 12/06/2021 10/11/2021, 01/31/2021, Booster for Pfizer series) 01/10/2021 INFLUENZA VACCINE (#1) 2022 08/31/2021, 08/10/2020, 08/13/2019, Additional history exists ADVANCE CARE PLANNING 01/23/2023 01/23/2018 MAMMO SCREENING 04/03/2024 04/03/2022, 05/04/2021, 05/03/2020, Additional history exists Pneumococcal Vaccine: Aged Out 04/12/2020 No longer eligible Pediatrics (0 to 5 Years) based on patient's age and At-Risk Patients (6 to to co mplete this topic 64 Years) ZOSTER IMMUNIZATION Completed 01/18/2022, 08/31/2021 IPV IMMUNIZATION Aged Out No longer eligi ble based on patient 's age to complete this topic MENINGITIS IMMUNIZATION Aged Out No longe r eligible based on patient 's age to complete this topic Insurance Payer Benefit Plan / Subscriber ID Effective Dates Phone Addre ss Type Group MEDICA MEDICA CHOICE [id number] 2013-Present [phone] [address] [address] Indemnity [address] [place] [address] Care Teams Copy Operator Relationship Specialty Start Date End Date Sandra Narvaez MD PCP - General geophysical support specialist 07/11/[address] [address] [place] [address]
--- OUTSIDE RECORDS SUMMARY | 2022-08-20 08:04 | XMS_ITS | Encounter Summary ---
:1955 Author Organization [facility] Address [address] [place] [address]. [place] [address] Care Team Providers Name Role Phone Sandra Narvaez MD Primary Care Provider [phone] Charley Armstrong MD Unavailable [phone] Charley Armstrong MD Unavailable [phone] Reason for Referral Diagnostic Imaging Mammo - Closed Specialty Diagnoses / Procedures Referred By Contact Refer red To Contact Radiology. Diagnoses Visit for screening mammogram Sandra Narvaez, Breast Center Procedures MA Screen Bilateral rasheed/Ziggy K[facility] [address], [address] [place] [address] [address] [place] [address] [place] [address] Phone: Fax: Referral ID Status Reason Start Date Expiration Date Visits Requ ested Visits Authorized [id number] Closed 06/04/2018 06/04/2019 1 1 Reason for Visit Diagnostic Imaging Mammo - Closed Specialty Diagnoses / Procedures Referred By Contact Refer red To Contact Radiology. Diagnoses Visit for screening mammogram Sandra Narvaez, Breast Center Procedures MA Screen Bilateral w/Ziggy KAY [address], [address] [place] [address] [address] [address] [place] [address] [place] [address] Phone: Fax: Referral ID Status Reason Start Date Expiration Date Visits Requ ested Visits Authorized [id number] Closed 06/04/2018 06/04/2019 1 1 Encounter Details Date Type Department Care Team Description 06/04/2018 Hospital Encounter [facility] NarvaezBhumika pena for screening [facility] Sandra Costa MD mammogram Center [address] [place] [address] Social History Tobacco Use Types Packs/Day Years Used Date Smoking Tobacco: Never Smokeless Tobacco: Never Alcohol Use Standard Drinks/Week Comments Yes 0 (1 standard drink = 0.6 oz pure alcoho l) very little Sex Assigned at Date Recorded Not on file documented as of this encounter Medications at [...] Associated Diagnosis Comme nts MA SCREENING Routine 06/04/2018 12:00 PM Visit for screening R esults for this BILATERAL W/ ZIGGY CDT mammogram procedure are in the results section. documented in this encounter Results MA Screen Bilateral w/Ziggy (06/04/2018 12:00 PM CDT) Anatomical Region Laterality Modality Breast Bilateral Mammography Specimen (Source) Anatomical Location Collection Method / Collectio n Time Received Time / Laterality Volume Impressions 06/04/2018 12:56 PM CDT IMPRESSION: BI-RADS CATEGORY: 1 - ??Negative RECOMMENDED FOLLOW-UP: Annual Mammograph y. Exam results letter mailed to patient. LORENZO RASHEED MD Narrative 06/04/2018 12:56 PM CDT SCREENING MAMMOGRAM, BILATERAL, DIGITAL w/CAD AND TOMOSYNTHESIS - 06/04/2018 12:00 PM BREAST SYMPTOMS: No current breast compl aints. COMPARISON: ??06/27/2017, 07/15/2013. BREAST DENSITY: Scattered fibroglandular densities. COMMENTS: No findings of suspicion for m alignancy. Procedure Note Lorenzo Rasheed MD - 06/04/2018For matting of this note might be different from the original. SCREENING MAMMOGRAM, BILATERAL, DIGITAL w/CAD AND TOMOSYNTHESIS - 06/04/2018 12:00 PM BREAST SYMPTOMS: No current breast compl aints. COMPARISON: 06/27/2017, 07/15/2013. BREAST DENSITY: Scattered fibroglandular densities. COMMENTS: No findings of suspicion for m alignancy. IMPRESSION: BI-RADS CATEGORY: 1 - Negati ve RECOMMENDED FOLLOW-UP: Annual Mammograph y. Exam results letter mailed to patient. LORENZO RASHEED MD Sandra Narvaez MD IMG MAMMOGRAPHY ORDERABLES documented in this encounter Visit Diagnoses Diagnosis Visit for screening mammogram Other screening mammogram documented in this encounter Care Teams Print Line Supervisor Relationship Specialty Start Date End Date Sandra Narvaez MD PCP - General toll testboard worker 07/11/[address] [place] [address] Charley Armstrong MD PCP - Assigned PCP 01/02/18 12/16/18 [address] [address] Charley Armstrong MD Assigned PCP 01/02/18 01/28/21 [address] [phone] documented as of this encounter
--- OUTSIDE RECORDS SUMMARY | 2022-08-20 08:04 | XMS_ITS | Encounter Summary ---
:1955 Author Organization [facility] Address [address] [place] [address]. [place] [address] Care Team Providers Name Role Phone Unavailable Primary Care Provider Unavailable Encounter Details Date Type Department Care Team Description 02/21/2009 Results Only [facility] Rica Narvaez, Hospital Results [address] [place] [address] (Wo rk) Social History Tobacco Use Types Packs/Day Years Used Date Smoking Tobacco: Never Assessed Sex Assigned at Date Recorded Not on file documented as of this encounter Plan of Treatment Not on filedocumented as of this encounter Procedures Procedure Name Priority Date/Time Associated Diagnosis Comme [facility] MAMMO SCREEN Routine 02/21/2009 11:32 AM Resul ts for this BILATATERAL, INCL CDT procedure are in CAD WHEN PERF the results section. documented in this encounter Results SCREENING MAMMOGRAPHY DIGITAL (BILAT) (02/21/2009 11:32 AM CDT) Anatomical Region Laterality Modality Other Specimen (Source) Anatomical Collection Method Collection Time Re ceived Time Location / / Volume Laterality 02/21/2009 11:32 AM CDT Impressions 02/21/2009 1:59 PM CDT SCREENING MAMMOGRAPHY, BILATERAL, DIGITA L, w/CAD ??February 21, 2009. HISTORY/COMPARISON: Routine. ?? 8, 12/07/2002 BREAST PARENCHYMAL PATTERN: ??Extremely dense. FINDINGS: ??Negative. ? IMPRESSION: ??BI-RADS 1, NEGATIVE. Sandra Narvaez MD SPECIAL IMAGING STUDIES documented in this encounter Visit Diagnoses Not on filedocumented in this encounter
--- OUTSIDE RECORDS SUMMARY | 2022-08-20 08:04 | XMS_ITS | Encounter Summary ---
:1955 Author Organization [place] Address [address] [place] [address]. [place] [address] Care Team Providers Name Role Phone Sandra Narvaez MD Primary Care Provider Charley Armstrong MD Unavailable [phone] Encounter Details Date Type Department Care Team Description 05/03/2020 Travel Social History Tobacco Use Types Packs/Day Years Used Date Smoking Tobacco: Never Smokeless Tobacco: Never Alcohol Use Standard Drinks/Week Comments Yes 0 (1 standard drink = 0.6 oz pure alcoho l) very little Sex Assigned at Date Recorded Not on file COVID-19 Exposure Response Date Recorded In the last month, have you been in contact with No / Unsure 05/03/2020 10:13 AM CDT someone who was confirmed or suspected to have Coronavirus / COVID-19? documented as of this encounter Plan of Treatment Not on filedocumented as of this encounter Visit Diagnoses Not on filedocumented in this encounter Care Teams Principal Clerk Typist Relationship Specialty Start Date End Date Sandra Narvaez MD PCP - General business control specialist 07/11/[address] [place] [phone] Charley Armstrong MD Assigned PCP 01/02/18 01/28/21 [address] [place] [address] documented as of this encounter
--- OUTSIDE RECORDS SUMMARY | 2022-08-20 08:04 | XMS_ITS | Encounter Summary ---
:1955 Author Organization [facility] Address [address] [place] [address]. [place] [address] Care Team Providers Name Role Phone Sandra Narvaez MD Primary Care Provider [phone] Charley Armstrong MD Unavailable [phone] Reason for Referral Diagnostic Imaging Mammo (Routine) - Closed Specialty Diagnoses / Procedures Referred By Contact Refer red To Contact Radiology. Diagnoses Visit for screening mammogram Sandra Narvaez, Breast Center Procedures MA Screen Bilateral w/Ziggy KAY [address], [address] [place] [address] [address] [place] [address] [place] [address] Phone: Fax: Referral ID Status Reason Start Date Expiration Date Visits Requ ested Visits Authorized [id number] Closed 05/22/2019 05/21/2020 1 1 Reason for Visit Diagnostic Imaging Mammo (Routine) - Closed Specialty Diagnoses / Procedures Referred By Contact Refer red To Contact Radiology. Diagnoses Visit for screening mammogram Sandra Narvaez, Breast Center Procedures MA Screen Bilateral w/Ziggy KAY [address], [address] [place] [address] [place] [address] Phone: Fax: Referral ID Status Reason Start Date Expiration Date Visits Requ ested Visits Authorized [id number] Closed 05/22/2019 05/21/2020 1 1 Encounter Details Date Type Department Care Team Description 05/28/2019 Hospital Encounter [facility] Bhumika Narvaez for screening [facility] Sandra Costa MD mammogram Center [address] [address] [place] [phone] Social History Tobacco Use Types Packs/Day Years [...] Associated Diagnosis Comme nts MA SCREENING Routine 05/28/2019 1:16 PM Visit for screening Re sults for this BILATERAL W/ ZIGGY CDT mammogram procedure are in the results section. documented in this encounter Results MA Screen Bilateral w/Ziggy (05/28/2019 1:16 PM CDT) Anatomical Region Laterality Modality Breast Bilateral Mammography Specimen (Source) Anatomical Location Collection Method / Collectio n Time Received Time / Laterality Volume Impressions 05/28/2019 2:37 PM CDT IMPRESSION: BI-RADS CATEGORY: 1 - ??NEGATIVE. RECOMMENDED FOLLOW-UP: Annual Mammograph y. The patient will be notified of the resu lts. JON SILVA MD Narrative 05/28/2019 2:37 PM CDT Examination: Bilateral digital screening mammography with computer aided detection including digital breast tomosynthesis, 05/28/2019 1:16 PM. Comparison: 06/04/2018, 08/01/2015 History: No current breast concerns. BREAST DENSITY: Scattered fibroglandular densities. COMMENTS: ??No suspicious finding. ??Bio psy marker in the LEFT breast. Procedure Note Jon Silva MD - 05/28/2019 Examination: Bilateral digital screening mammography with computer aided detection including digital breast tomosynthesis, 05/28/2019 1:16 PM. Comparison: 06/04/2018, 08/01/2015 History: No current breast concerns. BREAST DENSITY: Scattered fibroglandular densities. COMMENTS: No suspicious finding. Biopsy marker in the LEFT breast. IMPRESSION: BI-RADS CATEGORY: 1 - NEGATI VE. RECOMMENDED FOLLOW-UP: Annual Mammograph y. The patient will be notified of the resu lts. JON SILVA MD Sandra Narvaez MD IMG MAMMOGRAPHY ORDERABLES documented in this encounter Visit Diagnoses Diagnosis Visit for screening mammogram Other screening mammogram documented in this encounter Care Teams Marketing Communications Associate Relationship Specialty Start Date End Date Sandra Narvaez MD PCP - General ceramic painter 07/11/[address] [place] [address] Charley Armstrong MD Assigned PCP 01/02/18 01/28/21 [address] [place], [place] [address] documented as of this encounter
--- OUTSIDE RECORDS SUMMARY | 2022-08-20 08:04 | XMS_ITS | Encounter Summary ---
:1955 Author Organization [place] [facility] Address [address] [place] [address]. [place] [address] Care Team Providers Name Role Phone Sandra Narvaez MD Primary Care Provider [phone] Charley Armstrong MD Unavailable [phone] Reason for Referral Diagnostic Imaging Mammo (Routine) - Closed Specialty Diagnoses / Procedures Referred By Contact Refer red To Contact Diagnoses Visit for screening mammogram Sandra Narvaez MD Procedures MA Screen Bilateral w/Ziggy [address] [address] Referral ID Status Reason Start Date Expiration Date Visits Requ ested Visits Authorized [id number] Closed 03/25/2020 03/25/2021 1 1 Reason for Visit Diagnostic Imaging Mammo (Routine) - Closed Specialty Diagnoses / Procedures Referred By Contact Refer red To Contact Diagnoses Visit for screening mammogram Sandra Narvaez MD Procedures MA Screen Bilateral w/Ziggy [address] [address] Referral ID Status Reason Start Date Expiration Date Visits Requ ested Visits Authorized [id number] Closed 03/25/2020 03/25/2021 1 1 Encounter Details Date Type Department Care Team Description 05/03/2020 Hospital Encounter [facility] Bhumika Narvaez for screening [facility] Sandra Costa MD mammogram Center [address] [place] [address] Social History Tobacco Use [...] Procedure Name Priority Date/Time Associated Diagnosis Comme [facility] MA SCREENING Routine 05/03/2020 10:48 AM Visit for screening R esults for this BILATERAL W/ ZIGGY CDT mammogram procedure are in the results section. documented in this encounter Results MA Screen Bilateral w/Ziggy (05/03/2020 10:48 AM CDT) Anatomical Region Laterality Modality Breast Bilateral Mammography Specimen (Source) Anatomical Location Collection Method / Collectio n Time Received Time / Laterality Volume Impressions 05/03/2020 12:56 PM CDT IMPRESSION: BI-RADS CATEGORY: 1 - ??Negative RECOMMENDED FOLLOW-UP: Annual Mammograph y. Exam results letter mailed to patient. MARILIN BERUMEN MD Narrative 05/03/2020 12:56 PM CDT SCREENING MAMMOGRAM, BILATERAL, DIGITAL w/CAD and TOMOSYNTHESIS - 05/03/2020 10:48 AM BREAST SYMPTOMS: No current breast compl aints. COMPARISON: ??05/28/2019, 06/27/2017. BREAST DENSITY: Scattered fibroglandular densities. COMMENTS: No findings of suspicion for m alignancy. Procedure Note Marilin Berumen MD - 05/03/2020F ormatting of this note might be different from the original. SCREENING MAMMOGRAM, BILATERAL, DIGITAL w/CAD and TOMOSYNTHESIS - 05/03/2020 10:48 AM BREAST SYMPTOMS: No current breast compl aints. COMPARISON: 05/28/2019, 06/27/2017. BREAST DENSITY: Scattered fibroglandular densities. COMMENTS: No findings of suspicion for m alignancy. IMPRESSION: BI-RADS CATEGORY: 1 - Negati ve RECOMMENDED FOLLOW-UP: Annual Mammograph y. Exam results letter mailed to patient. MARILIN BERUMEN MD Sandra Narvaez MD IMG MAMMOGRAPHY ORDERABLES documented in this encounter Visit Diagnoses Diagnosis Visit for screening mammogram Other screening mammogram documented in this encounter Care Teams Director Product Relationship Specialty Start Date End Date Sandra Narvaez MD PCP - General senior internal auditor 07/11/[address] [place] [address] Charley Armstrong MD Assigned PCP 01/02/18 01/28/21 [address] [place] [address] documented as of this encounter
--- OUTSIDE RECORDS SUMMARY | 2022-08-20 08:04 | XMS_ITS | Encounter Summary ---
:1955 Author Organization [facility] Address [address] [place] [address]. [place] [address] Care Team Providers Name Role Phone Sandra Narvaez MD Primary Care Provider [phone] Reason for Visit (Routine) - Closed Specialty Diagnoses / Procedures Referred By Contact Refer red To Contact Radiology / Radiology. Diagnoses sb pt, pt is informed of 3d, pt does want this. [facility] Procedures MA SCREENING BILATERAL W/ ZIGGY [address], [address] [place] [address] Phone: Fax: Referral ID Status Reason Start Date Expiration Date Visits Requ ested Visits Authorized [id number] Closed 07/31/2016 07/31/2017 1 1 Encounter Details Date Type Department Care Team Description 08/03/2016 Hospital Encounter [facility] Bhumika Narvaez for screening [facility] Sandra Csota MD mammogram Center [address] [place] [address] Social History Tobacco Use Types Packs/Day Years Used Date Smoking Tobacco: Never Assessed Sex Assigned at Date Recorded Not on file documented as of this encounter Plan of Treatment Not on filedocumented as of this encounter Procedures Procedure Name Priority Date/Time Associated Diagnosis Comme nts MA SCREENING Routine 08/03/2016 9:40 AM Visit for screening Re sults for this BILATERAL W/ ZIGGY CDT mammogram procedure are in the results section. documented in this encounter Results MA Screen Bilateral w/Ziggy (08/03/2016 9:40 AM CDT) Anatomical Region Laterality Modality Breast Bilateral Mammography Specimen (Source) Anatomical Location Collection Method / Collectio n Time Received Time / Laterality Volume Impressions 08/03/2016 9:52 AM CDT IMPRESSION: BI-RADS CATEGORY: 1 - ??Negative. RECOMMENDED FOLLOW-UP: Annual Mammograph y. NURA MOHAMUD MD Narrative 08/03/2016 9:52 AM CDT SCREENING MAMMOGRAM, BILATERAL, DIGITAL w/CAD and TOMOSYNTHESIS, 08/03/2016 9:51 AM BREAST DENSITY: Scattered fibroglandular densities. CLINICAL INFORMATION: ??Encounter for sc reening mammogram for malignant neoplasm of breast, 08/01/15, 02/10/13, FINDINGS: Negative. Stable exam. Screeni ng exam in one year recommended. Procedure Note Nura Mohamud MD - 08/03/2016Formatt ing of this note might be different from the original. SCREENING MAMMOGRAM, BILATERAL, DIGITAL w/CAD and TOMOSYNTHESIS, 08/03/2016 9:51 AM BREAST DENSITY: Scattered fibroglandular densities. CLINICAL INFORMATION: Encounter for scre ening mammogram for malignant neoplasm of breast, 08/01/15, 02/10/13, FINDINGS: Negative. Stable exam. Screeni ng exam in one year recommended. IMPRESSION: BI-RADS CATEGORY: 1 - Negati ve. RECOMMENDED FOLLOW-UP: Annual Mammograph y. NURA MOHAMUD MD Sandra Narvaez MD IMG MAMMOGRAPHY ORDERABLES documented in this encounter Visit Diagnoses Diagnosis Visit for screening mammogram Other screening mammogram documented in this encounter Care Teams Freight Broker Relationship Specialty Start Date End Date Sandra Narvaez MD PCP - General welt rougher 07/11/[address] [place] [address] documented as of this encounter
--- OUTSIDE RECORDS SUMMARY | 2022-08-20 08:04 | XMS_ITS | Encounter Summary ---
:1955 Author Organization [facility] Address [address] [place] [address]. [place] [address] Care Team Providers Name Role Phone Unavailable Primary Care Provider Unavailable Encounter Details Date Type Department Care Team Description 06/29/2011 Results Only [facility] Rica Narvaez, Hospital Results [address] [place] [address] (Wo rk) Social History Tobacco Use Types Packs/Day Years Used Date Smoking Tobacco: Never Assessed Sex Assigned at Date Recorded Not on file documented as of this encounter Plan of Treatment Not on filedocumented as of this encounter Procedures Procedure Name Priority Date/Time Associated Diagnosis Comme nts MA SCREENING Routine 06/29/2011 11:09 AM Results for this DIGITAL BILATERAL CDT procedure are in the results section. documented in this encounter Results Mammo Screening digital (bilat) (06/29/2011 11:09 AM CDT) Anatomical Region Laterality Modality Breast Bilateral Other Specimen (Source) Anatomical Collection Method Collection Time Re ceived Time Location / / Volume Laterality 06/29/2011 11:09 AM CDT Impressions 07/02/2011 8:11 AM CDT SCREENING MAMMOGRAM, BILATERAL, DIGITAL w/CAD - June 29, 2011 BREAST SYMPTOMS: No current breast compl aints. ?? COMPARISON: 05/23/2010, 02/17/2008. ?? PARENCHYMAL PATTERN: Scattered fibroglan dular densities. COMMENTS: There is a 1.0 cm round asymme try in the right breast, seen on the MLO view. This should be further evaluated with spot compression and possible ultrasound. No suspicious findings in the left breast. IMPRESSION: BI-RADS 0, INCOMPLETE: NEED ADDITIONAL IMAGING EVALUATION, RIGHT. RECOMMENDATION: Right spot compression a nd possible ultrasound. Sandra Narvaez MD IMG MAMMOGRAPHY ORDERABLES documented in this encounter Visit Diagnoses Not on filedocumented in this encounter
--- OUTSIDE RECORDS SUMMARY | 2022-08-20 08:04 | XMS_ITS | Encounter Summary ---
:1955 Author Organization [facility] Address [facility] [place] [address] Care Team Providers Name Role Phone Sandra Narvaez MD Primary Care Provider [phone] Encounter Details Date Type Department Care Team Description 07/17/2013 Telephone [facility] Breast Radha Matthews RN [address], [address] [place] [address] Social History Tobacco Use Types Packs/Day Years Used Date Smoking Tobacco: Never Assessed Sex Assigned at Date Recorded Not on file documented as of this encounter Miscellaneous Notes Telephone Encounter - Radha Matthews RN - 07/17/2013 1:09 PM CDT Spoke with patient regarding results of 07/15/13 left breast ultrasound guided biopsy; fibroadenoma Results were reviewed by the Radiologist who performed this biopsy. Recommended follow up: routine screening All pt questions were answered, and my phone number was provided for any future needs. Radha Matthews RN Nurse Navigator [facility] documented in this encounter Plan of Treatment Not on filedocumented as of this encounter Visit Diagnoses Not on filedocumented in this encounter Care Teams Forensic Science Technician Relationship Specialty Start Date End Date Sandra Narvaez MD PCP - General casino cashier 07/11/[address] [place] [phone] documented as of this encounter
--- OUTSIDE RECORDS SUMMARY | 2022-08-20 08:04 | XMS_ITS | Encounter Summary ---
:1955 Author Organization [place] [facility] Address [address] [place] [address]. [place] [address] Care Team Providers Name Role Phone Unavailable Primary Care Provider Unavailable Encounter Details Date Type Department Care Team Description 08/10/2008 GI Procedure [facility] Rome Mortensen, None [facility] [address] [place], [place] [address] (Wo rk) Social History Tobacco Use Types Packs/Day Years Used Date Smoking Tobacco: Never Assessed Sex Assigned at Date Recorded Not on file documented as of this encounter Plan of Treatment Not on filedocumented as of this encounter Procedures Procedure Name Priority Date/Time Associated Comments Diagnosis GI HISTORY AND Routine 08/10/2008 12:28 Results f or this PHYSICAL PM CDT procedure are i n the results section. COLONOSCOPY Routine 08/10/2008 11:35 Results for this AM CDT procedure are i n the results section. documented in this encounter Results GI HISTORY AND PHYSICAL (08/10/2008 12:28 PM CDT) [facility] Method Time Signature GI History Endoscopy RADIOLOGY and Physical RESULTS Patient Name: Janel Ken ?Gender: F ? H & P Date: 08/10/2008 ? Date of : 1955 ? Age: 52 ? Admit Type: Outpatient ? Attending MD: Farzana Castillo MD ? Provider: ? Farzana Castillo MD Referring MD: ? Jose Armando Mortensen MD Requesting Provider: ? Chief Complaint: ?Screening History of Present Illness: This 52 year old female is evalu ated for ?screening colonosc opy. ?She denies constipation, diarrhea, abdominal ?pain, nausea, vomiting, hematochezia, and melena. ?She denies heart disease, indication for ?antibiotic prophylaxis, lung disease, liver ?disease, diabetes, h/o anesthesia complication, ?chest pain, shortness of breath, bleeding ?tendencies, or recent oral intake. Past Medical History: ? Mild asthma; s/p x2 Current Medications: ?Albuterol inhaler PRN Drug Allergies: ? NKDA Social History: ? Nonsmoker; occasional EtOH Family Medical History: ? No known colorectal cancer or polyps. Review of Systems: ?As above. Physical Exam: ?CV: RRR, normal S1 & S2, no S3, no S4, no murmurs ?or rubs ?Respiratory: Clear to auscultation ?GI: +B S, soft, nontender, no masses Impression: ? - Average risk screening for malignant neoplasm ?in the colon ?- Screening ASA: ?P1 A normal healthy patient. Plan: ? Colonoscopy A Anna Farzana Castillo MD Signed Date: 08/10/2008 12:31 PM Number of Addenda: 0 I was physically present for the entire viewing portion of t he exam. Note initiated on 08/10/2008 12:28 PM GI History RADIOLOGY and Physical RESULTS Specimen (Source) Anatomical Collection Method Collection Time Re ceived Time Location / / Volume Laterality 08/10/2008 12:28 PM CDT Jose Armando Mortensen MD PROCEDURES Performing Organization Address City/State/ZIP Code Phon e Number RADIOLOGY RESULTS COLONOSCOPY (08/10/2008 11:35 AM CDT) [facility] gist Method Time Signature COLONOSCOPY Endoscopy RADIOLOGY RESULTS Patient Name: Janel Ken ?Gender: F ? Procedure Date: 08/10/2008 1 1:35 AM ? Date of : 1955 ? Age: 52 ? Admit Type: Outpatient ? Attending MD: Farzana Castillo MD ? Procedure: ? Colonoscopy Indications: ? Average risk screening for malignant neoplasm in the ? colon Providers: ? Farzana Castillo MD Referring MD: ?Jose Armando Mortensen MD Medicines: ? Midazolam 2 mg IV, Fentanyl 100 mi crograms IV Complications: ? No immediate complications Procedure: ? - Prior to the procedure, a History and Physical was ? performed, and patient medication allergies have been ? reviewed. The patient's tolerance of previous anesthesia ? has been reviewed. ? - The risks and benefits of the procedure and the ? sedation options and risks were discussed with the ? patient. All questions were answered and informed ? consent was obtained. ? - ASA Grade Assessment: I - A normal, healthy patient. ? After obtaining informed consent, the colonoscope was ? passed under direct vision. Throughout the procedure, ? the patie nt's blood pressure, pulse, and oxygen ? saturations were monitored continuously. The [facility][id number] ? #[id number] was introduced through the anus and advanced to ? the cecum, identified by appendiceal orifice & IC valve. ? The colonoscopy was performed without difficulty. The ? patient tolerated the procedure well. The quality of the ? prep was good. The prep was adequate to identify polyps. ? Findings: ? The digital rectal exam was normal. Perti nent negatives include normal ? sphincter tone and no palpable rectal lesions. The entire examined colon ? appeared normal. ? Impression: ?- The colon is normal. Recommendation: ?- Repeat colonoscopy in 10 years for surveillance. ? A Anna Farzana Castillo MD Signed Date: 08/10/2008 12:31 PM Number of Addenda: 0 I was physically present for the entire viewing portion of t he exam. Note initiated on 08/10/2008 11:37 AM COLONOSCOPY RADIOLOGY RESULTS Specimen (Source) Anatomical Collection Method Collection Time Re ceived Time Location / / Volume Laterality 08/10/2008 11:35 AM CDT Jose Armnado Mortensen MD PROCEDURES Performing Organization Address City/State/ZIP Code Phon e Number RADIOLOGY RESULTS documented in this encounter Visit Diagnoses Not on filedocumented in this encounter
--- OUTSIDE RECORDS SUMMARY | 2022-08-20 08:04 | XMS_ITS | Encounter Summary ---
:1955 Author Organization [facility] Address [address] [place] [address]. [place] [address] Care Team Providers Name Role Phone Sandra Narvaez MD Primary Care Provider [phone] Encounter Details Date Type Department Care Team Description 07/14/2013 Hospital Encounter [facility] [place], [place] r[place] mammogram [facility] Sandra Costa MD [address], [address] [place] [address] Social History Tobacco Use Types Packs/Day Years Used Date Smoking Tobacco: Never Assessed Sex Assigned at Date Recorded Not on file documented as of this encounter Plan of Treatment Not on filedocumented as of this encounter Visit Diagnoses Diagnosis Abnormal mammogram Abnormal mammogram, unspecified documented in this encounter Care Teams Residential Assistant Relationship Specialty Start Date End Date Sandra Narvaez MD PCP - General charcoal unloader 07/11/[address] [place] [address] documented as of this encounter
--- OUTSIDE RECORDS SUMMARY | 2022-08-20 08:04 | XMS_ITS | Encounter Summary ---
:1955 Author Organization [place] Address [address] [place] [address]. [place] [address] Care Team Providers Name Role Phone Sandra Narvaez MD Primary Care Provider [phone] Reason for Visit (Routine) - Closed Specialty Diagnoses / Procedures Referred By Contact Refer red To Contact Radiology / Radiology. Diagnoses [facility] Procedures MA SCREENING DIGITAL BILATERAL [address], [address] [place] [address] Phone: Fax: Referral ID Status Reason Start Date Expiration Date Visits Requ ested Visits Authorized [id number] Closed 07/26/2014 07/23/2015 1 1 Encounter Details Date Type Department Care Team Description 07/26/2014 Hospital Encounter [facility] screening, [facility] Breast Sandra Costa MD unspecified Center [address] [place] [id number] Social History Tobacco Use Types Packs/Day Years Used Date Smoking Tobacco: Never Assessed Sex Assigned at Date Recorded Not on file documented as of this encounter Plan of Treatment Not on filedocumented as of this encounter Procedures Procedure Name Priority Date/Time Associated Diagnosis Comme nts MA SCREENING Routine 07/26/2014 11:14 AM Breast Screening, Res ults for this DIGITAL BILATERAL CDT Unspecified procedure are in the results section. documented in this encounter Results MA Screening Digital Bilateral (07/26/2014 11:14 AM CDT) Anatomical Region Laterality Modality Breast Bilateral Mammography Specimen (Source) Anatomical Location Collection Method / Collectio n Time Received Time / Laterality Volume Impressions 07/26/2014 1:30 PM CDT IMPRESSION: BI-RADS CATEGORY: 1 - ??Negative. RECOMMENDED FOLLOW-UP: Annual Mammograph y. ?? CLEO RODRIGUEZ MD Narrative 07/26/2014 1:30 PM CDT SCREENING MAMMOGRAM, BILATERAL, DIGITAL w/CAD, 07/26/2014 1:28 PM BREAST DENSITY: Heterogeneously dense. CLINICAL INFORMATION: ??Breast screening , unspecified, 07/13/2013, 06/29/2011 FINDINGS: Negative. Screening exam in on e year recommended. Sandra Narvaez MD IMG MAMMOGRAPHY ORDERABLES documented in this encounter Visit Diagnoses Diagnosis Breast screening, unspecified documented in this encounter Care Teams Marketing Analytics Specialist Relationship Specialty Start Date End Date Sandra Narvaez MD PCP - General dye mixer 07/11/[address] [facility] [address] [place] [id number] documented as of this encounter
--- OUTSIDE RECORDS SUMMARY | 2022-08-20 08:04 | XMS_ITS | Encounter Summary ---
:1955 Author Organization [place] Address [address] [place] [address]. [place] [address] Care Team Providers Name Role Phone Unavailable Primary Care Provider Unavailable Encounter Details Date Type Department Care Team Description 08/06/2005 Results Only [facility] Rica Narvaez, [facility] Results [address] [place] [address] (Wo rk) Social History Tobacco Use Types Packs/Day Years Used Date Smoking Tobacco: Never Assessed Sex Assigned at Date Recorded Not on file documented as of this encounter Plan of Treatment Not on filedocumented as of this encounter Procedures Procedure Name Priority Date/Time Associated Diagnosis Comme nts C MAMMOGRAM, Routine 08/06/2005 10:35 AM Results for this SCREENING CDT procedure are i n the results section. documented in this encounter Results MAMMOGRAM, SCREENING (08/06/2005 10:35 AM CDT) Anatomical Region Laterality Modality Other Specimen (Source) Anatomical Collection Method Collection Time Re ceived Time Location / / Volume Laterality 08/06/2005 10:35 AM CDT Impressions 08/10/2005 7:28 AM CDT SCREENING MAMMOGRAM, BILATERAL ?? 005 BREAST SYMPTOMS: None PREVIOUS MAMMOGRAPHY: Comparison with [facility] dated 02/15/2004 and 10/29/2000. ??There is no significant change. BREAST PARENCHYMA: ??Heterogeneously de nse. IMPRESSION: CATEGORY 1 Negative TECHNOLOGIST INITIALS: SRK Sandra Narvaez MD SPECIAL IMAGING STUDIES documented in this encounter Visit Diagnoses Not on filedocumented in this encounter
--- OUTSIDE RECORDS SUMMARY | 2022-08-20 08:04 | XMS_ITS | Encounter Summary ---
:1955 Author Organization [place] Address [address] [place] [address]. [place] [address] Care Team Providers Name Role Phone Sandra Narvaez MD Primary Care Provider [phone] Reason for Visit (Routine) - Closed Specialty Diagnoses / Procedures Referred By Contact Refer red To Contact Radiology Diagnoses SCREENING BILATERAL-DIGITAL Procedure Notes: 06/29/2011, 05/23/2010, 02/17/2008 Breast Center Procedures RADIOLOGY [address], [address] [place], [place] [address] Phone: Fax: Referral ID Status Reason Start Date Expiration Date Visits Requ ested Visits Authorized [id number] Closed 07/10/2012 07/10/2013 1 1 Encounter Details Date Type Department Care Team Description 07/11/2012 Hospital Encounter [facility] Violet Narvaez [facility] MD Julissa [address], [address] [place] [address] [address] [place] [address] [phone] Social History Tobacco Use Types Packs/Day Years Used Date Smoking Tobacco: Never Assessed Sex Assigned at Date Recorded Not on file documented as of this encounter Plan of Treatment Not on filedocumented as of this encounter Procedures Procedure Name Priority Date/Time Associated Diagnosis Comme [facility] SCREENING Routine 07/11/2012 11:30 AM Results for this DIGITAL BILATERAL CDT procedure are in the results section. documented in this encounter Results Mammo Screening digital (bilat) (07/11/2012 11:30 AM CDT) Anatomical Region Laterality Modality Breast Bilateral Other Specimen (Source) Anatomical Collection Method Collection Time Re ceived Time Location / / Volume Laterality 07/11/2012 11:30 AM CDT Impressions 07/11/2012 12:26 PM CDT SCREENING MAMMOGRAM, BILATERAL, DIGITAL w/CAD BREAST SYMPTOMS/COMPARISON: 06/29/2011, 07/06/2011, 02/17/2008 BREAST PARENCHYMAL PATTERN: Heterogeneou sly dense. which could obscure detection of small masses FINDINGS: Negative. Screening exam in on e year recommended. IMPRESSION: BI-RADS 1, NEGATIVE. Sandra Narvaez MD IMG MAMMOGRAPHY ORDERABLES documented in this encounter Visit Diagnoses Not on filedocumented in this encounter Care Teams Medicare Compliance Auditor Relationship Specialty Start Date End Date Sandra Narvaez MD PCP - General bindery chief 07/11/[address] [facility] [address] [place] [phone] documented as of this encounter
--- OUTSIDE RECORDS SUMMARY | 2022-08-20 08:04 | XMS_ITS | Encounter Summary ---
:1955 Author Organization [place] Address [address] [place] [address]. [place] [address] Care Team Providers Name Role Phone Unavailable Primary Care Provider Unavailable Encounter Details Date Type Department Care Team Description 02/17/[address] [facility] Rica Narvaez, Hospital Results [address] [place] [address] (Wo rk) Social History Tobacco Use Types Packs/Day Years Used Date Smoking Tobacco: Never Assessed Sex Assigned at Date Recorded Not on file documented as of this encounter Plan of Treatment Not on filedocumented as of this encounter Procedures Procedure Name Priority Date/Time Associated Comments Diagnosis C DIGITIZATION, Routine 02/17/2008 11:15 Results for this MAMMOGRAPHIC JARED AM CDT procedure a re in the results section. documented in this encounter Results DIGITIZATION, MAMMOGRAPHIC JARED (02/17/2008 11:15 AM CDT) Anatomical Region Laterality Modality Other Specimen (Source) Anatomical Collection Method Collection Time Re ceived Time Location / / Volume Laterality 02/17/2008 11:15 AM CDT Impressions 02/17/2008 1:52 PM CDT SCREENING MAMMOGRAM, BILATERAL, DIGITAL w/ CAD BREAST SYMPTOMS/COMPARISON:Routine. ??, 12-07-02 BREAST PARENCHYMAL PATTERN: heterogeneou sly dense. FINDINGS: Negative. IMPRESSION: ACR BI-RAD Category 1. Negat fernandez. Sandra Narvaez MD GENERAL IMAGING documented in this encounter Visit Diagnoses Not on filedocumented in this encounter
--- OUTSIDE RECORDS SUMMARY | 2022-08-20 08:05 | XMS_ITS ---
:1955 Author Care Team Providers Name Role Phone Preeti Gilbert Primary Care Provider Unavailable Allergies Code Code System Name Reaction Severity Status Onset NKDA ? Notes: 05/13/2020: NO KNOWN DRUG ALLER GIES *Note: 04/10/2019 - Medications Name Status Start Date Stop Date ? ? albuterol sulfate HFA 90 mcg/actuation aerosol inhaler Active ? Not available INHALE 2 PUFFS EVERY 4 HOURS NEEDED bimatoprost 0.03 % drops with applicator, eyelash base Active ? Not available PLACE 1 DROP TOPICALLY TO AFFECTED AREA. cefadroxil 500 mg capsule Active ? Not av ailable TAKE 1 CAPSULE BY MOUTH TWICE DAILY. ibuprofen 600 mg tablet Active ? Not avai lable TAKE 1 TABLET BY MOUTH EVERY 6 TO 8 HOURS NEEDED FOR PAIN oxycodone 5 mg tablet Active ? Not availa ble TAKE 1 TO 2 TABLETS BY MOUTH EVERY 4 HO URS NEEDED FOR PAIN . DO NOT EXCEED 6 PER 24 HOURS valacyclovir 500 mg tablet Active ? Not a vailable TAKE 4 TABS AT ONSET OF SYMPTOMS AND 4 TABS 12HRS LATER. Problems Notes: 05/23/2020: *Problem Name: *OTH ER - Urology *Problem Status: active Procedures Date Name Performed by ? ? Appendectomy Information not avai lable Notes: *Notes: with 1st ? Section Information not avai lable Notes: *Notes: x2 ? Varicose Vein Stripping Information not available Results Lab Results Date Name Specimen Result Interpretation Description Value Range Status Address ? 04/17/2022 Pap, IG + CERVIX ? Interpretation nilm,asmr ? [facility] HPV Diseas e (16+18+45) Detect ion (Lab): [address], [place] ? ? CERVIX ? Category: nil ? Final [facility] (Lab): [address], [place] ? ? CERVIX ? Adequacy: endo ? [facility] (Lab): [address], [place] ? ? CERVIX ? Clinician comment ? Final Cente r For Provided ICD10: D isease Detection (Lab): [address] [facility] [address], [place] ? ? CERVIX ? Performed by: comment ? Final C enter For Disease Detection (Lab): [address] [facility] [address], [place] ? ? CERVIX ? Note: comment ? Final [facility] (Lab): [address] [place] [address], [place] ? ? CERVIX ? Test comment ? Final Center Fo r Methodology: Dise ase Detection (Lab): [address] [facility] [address], [place] ? ? CERVIX ? HPV Aptima negative negative Final C enter For Disease Detection (Lab): [address] [facility] [address], [place] Past Encounters 04/17/2022 Gynecologic Examination Ada Dyer GEENA-: [address] [facility] [address], [address], [place] [address], Ph. Social History Tobacco Smoking Status Never Smoker Notes: Tobacco *Status: Never *Note: 04/10/2019 - Vaccine List Vaccine Type influenza, recombinant, quadrIvalent,inj ectable, preservative free 08/10/2020 Plan of Care Reminders Provider Appointments None recorded. ? ? Lab None recorded. ? ? Referral None recorded. ? ? Procedures None recorded. ? ? Surgeries None recorded. ? ? Imaging None recorded. ? ? Vitals 04/17/2022 11:30AM G_ANNUAL EXAM Height Weight BMI Blood Pressure 5 ft 5 in 129 lbs 21.5 kg/m2 120/70 mm[Hg] 04/10/2019 Height Weight BMI Blood Pressure 5 ft 6 in 130.5 lbs 21.06 kg/m2 128/70 mm[Hg] 05/27/2017 Height Weight BMI Blood Pressure 5 ft 6 in 136 lbs 21.95 kg/m2 138/80 mm[Hg] 02/15/2015 Height Weight BMI Blood Pressure 5 ft 6 in 136 lbs 21.95 kg/m2 116/72 mm[Hg] 01/25/2014 Height Weight BMI Blood Pressure 5 ft 6 in 139 lbs 22.44 kg/m2 116/70 mm[Hg] 03/31/2012 Height Weight BMI Blood Pressure 5 ft 6 in 130 lbs 20.98 kg/m2 108/64 mm[Hg] 12/11/2010 Height Weight BMI Blood Pressure 5 ft 6 in 133.38 lbs 21.53 kg/m2 120/64 mm[Hg] 08/22/2009 Height Weight BMI Blood Pressure 5 ft 6 in 128 lbs 20.66 kg/m2 118/76 mm[Hg]
--- OUTSIDE RECORDS SUMMARY | 2022-08-20 08:05 | XMS_ITS | Clinical Summary ---
:1955 Author Organization [employer] [facility] [employer] [place] [address] Care Team Providers Name Role Phone Anita Keenan Primary Care Provider Allergies Active Allergy Reactions Severity Noted Date Comments Amoxicillin 01/16/2010 Medications Medication Sig Dispensed Refills Start Date End Date Status fexofenadine (COLEEN) Take 180 mg by 0 Active 180 mg tablet mouth once daily with a meal. ALBUTEROL INHL Inhale by mouth 0 Active each time if needed. IBUPROFEN ORAL Take by mouth 0 A ctive each time if needed. Active Problems Problem Noted Date Migraines 01/16/2010 Varicose veins 01/16/2010 Environmental allergies 01/16/2010 Asthma 01/16/2010 Routine health maintenance 01/16/2010 Overview: Last PAP Smear: 03/2008 Last Breast Exam: 03/2008 Last Mammogram: 02/2009 Last Lipids: 09/2006 Last Colonoscopy: 07/2008 Colonoscopy 03/2017 normal repeat in 10 y ears Family History Medical History Relation Name Comments Diabetes Father Heart Disease Father Hypertension Father Stroke Father Relation Name Status Comments Father Social History Tobacco Use Types Packs/Day Years Used Date Never Smoker Alcohol Use Standard Drinks/Week Comments Not Asked 0 (1 standard drink = 0.6 oz pure alcoho l) Sex Assigned at Date Recorded Not on file Obstetrics History Plan of Treatment Health Maintenance Due Date Last Done Comments COVID-19 vaccine series (#1) [birth year]07/1956 Tdap 1968 Depression screening for age 12+ 1969 BMI (ht and wt on same day) for age 1210/07/1975 18+ Hepatitis C screening for age 18-79 1975 Tetanus booster 1977 Pap test for age 21-65 1978 Lipids for age 45-75 2002 Mammogram for age 45-75 2002 Zoster (shingles) series for age 50+ 2007 (1 of 2) Influenza for age 50-64 06/14/2022 Colonoscopy through age 75 04/08/2027 04/08/2017, 7, 04/08/2017 Results Not on filefrom Last 3 Months Care Teams Director Clinical Data Relationship Specialty Start Date End Date Anita Keenan PCP - General Family Practice 03/13/17
[2022-08-20 13:57] LABS: Chloride* 104 mmol/L (96-114); Potassium* 4.5 mmol/L (3.6-5.1); Sodium* 139 mmol/L (135-149)
[2022-08-20 14:00] LABS: Blood Urea Nitrogen* 12 mg/dL (7-30); Carbon Dioxide* 27 mmol/L (20-32); Cholesterol* 230 mg/dL (90-199); Creatinine* 0.7 mg/dL (0.5-1.5); Estimated Glomerular Filt Rate 97 ml/min; Glucose* 89 mg/dL (60-115); Triglycerides* 78 mg/dL (40-149)
[2022-08-20 14:01] LABS: Calcium* 9.2 mg/dL (8.4-10.6); HDL Cholesterol* 86 mg/dL (>=50); LDL Cholesterol Calculated 128 mg/dL (<100)
== END 2022-08-20 10:41 | disposition home or self-care (01) ==
PROVIDERS: PCP Family Medicine; Visit Provider Family Medicine
DX: Z00.00 Encounter for general adult medical examination without abnormal findings (principal); Z13.6 Encounter for screening for cardiovascular disorders
CPT/HCPCS: 80048; 80061

== ENCOUNTER 2023-08-14 08:40 | Outpatient (CLI) | payer OTHER, SELFPAY | END 2023-08-14 08:41 | disposition home or self-care (01) | PROVIDERS: PCP Family Medicine; Visit Provider Emergency Medicine | DX: Z00.00 Encounter for general adult medical examination without abnormal findings (principal); R73.03 Prediabetes; R35.0 Frequency of micturition; R53.83 Other fatigue; M81.0 Age-related osteoporosis without current pathological fracture; Z13.6 Encounter for screening for cardiovascular disorders | CPT/HCPCS: 80048; 80061 ==

== ENCOUNTER 2023-12-12 13:12 | Outpatient (CLI) | payer MEDICARE, SELFPAY ==
--- NOTE | 2023-12-12 13:30 | XR_ITS ---
Patient: KAREN RUANO Facility:?[facility] Patient ID:?[id number] Site Patient ID:?[id number]. Site :?1955 Study:?DEXA-Bone Density SPINE/BOTH HIPS-12/12/2023 1:40:30 PM Ordering Physician:KINA Final Report: DXA BONE MINERAL DENSITY STUDY Reason for exam: Osteopenia Current height (in): 64.5. Weight (lb): 128. Menopause age: 58. Ethnicity: White. 1. Have you had a previous hip or vertebral fracture? Yes. 2. Have you had any fractures during your adult life which did not result from significant trauma (e.g., auto accident)? Yes. 3. Did either of your parents have a hip fracture? No. 4. Do you smoke? No. 5. Have you ever taken Glucocorticoids? No. 6. Do you have rheumatoid arthritis? Yes. 7. Do you have secondary osteoporosis? No. 8. Do you drink 3 or more alcoholic drinks per day? No. 9. Are you being treated for osteoporosis? No. 10. Have you ever taken any of the following medications: Actonel, Evista, Fosamax, Miacalcin, Reclast, Boniva, Forteo, HRT (i.e., estrogen/hormone therapy), Protelos, Prolia, Vitamin D, Calcium, other ? please specify. ANSWER: Yes, calcium. 11. Do you have any of the following medical conditions: Anorexia or bulimia, asthma or emphysema, end stage renal disease, hyperparathyroidism, any seizure disorders, cancer, inflammatory bowel diseases, hysterectomy, other ? please specify. ANSWER: Yes, asthma or emphysema. 12. What was your maximum height (inches)? 66. 13. Do you perform weight bearing exercise regularly? Yes. 14. Do you regularly consume dairy products? No. 15. Do you drink caffeinated beverages? Yes. If female: 16. At what age did your period start? 15. 17. Are you premenopausal? No. 18. How many full-term pregnancies have you had? 2. 19. Have you ever missed your period for more than 6 months in a row (not including or menopause)? No. TECHNIQUE: Bone mineral density study was performed using the [employer]. FINDINGS: The results of the study expressed as bone mineral density (BMD) are as follows: Lumbar spine L1 to L4: BMD: 0.824 g/cm2. T-score: -2.0. Z-score: -0.2 Neck Left: BMD: 0.574 g/cm2. T-score: -2.5. Z-score: -0.9 Right: BMD: 0.594 g/cm2. T-score: -2.3. Z-score: -0.7 Total Left: BMD: 0.714 g/cm2. T-score: -1.9. Z-score: -0.6 Right: BMD: 0.751 g/cm2. T-score: -1.6. Z-score: -0.3 IMPRESSION: Osteoporosis. *Comparison exams done prior to 03/2020 were performed on different unit, [place]. COMPARISON: Compared with scan of 09/27/2021, the bone mineral density has decreased by 1.5 percent at the spine and increased by 1.0 percent at the hip. Compared with scan of 08/27/2019, the bone mineral density has increased by 2.0 percent at the spine and increased by 2.0 percent at the hip. Bishop Gonzalez M.D. Diagnostic Radiologist [email or web address] BIJU/chuckie D& Transcribed: 5:00 p.mMarce noguera/Dictated by: Bishop Gonzalez MD @ 12/13/2023 9:18:00 AM Signed by:?Bishop Gonzalez MD @12/14/2023 10:14:58 AM (Electronic Signature)
== END 2023-12-12 13:13 | disposition home or self-care (01) ==
LOC: RAD 13:13
PROVIDERS: PCP Family Medicine; Visit Provider Emergency Medicine
DX: M85.80 Other specified disorders of bone density and structure, unspecified site (principal); M81.0 Age-related osteoporosis without current pathological fracture
CPT/HCPCS: 77080

== ENCOUNTER 2024-07-29 08:44 | Outpatient (CLI) | payer MEDICARE, SELFPAY ==
--- OUTSIDE RECORDS SUMMARY | 2024-07-29 08:49 | XMS_ITS | Clinical Summary ---
Author Organization [facility] Address [address] [facility] [place] [address] Care Team Providers Care Dental Practice Manager Name Role Phone Sandra Narvaez MD Primary Care Provider Allergies No known active allergies Medications Medication Sig Dispensed Refills Start Date End Date Status fexofenadine (COLEEN) 180 MG tabletIndications:H air thinning,Other fatigue Take 1 tablet (180 mg) by mouth daily as needed for allergies 90 tablet 3 01/23/2018 Active omega 3 1000 MG CAPSIndications:Enrique r thinning,Other fatigue Take 2 g by mouth 2 times daily 90 capsule 01/23/2018 Active Turmeric 500 MG CAPSIndications:Enrique r thinning,Other fatigue Take 500 mg by mouth daily 01/23/2018 Active progesterone 200 MG/GM (CMPD) topical creamIndications:Palm ir thinning,Other fatigue Apply topically daily 01/23/2018 Active Calcium Carb-Cholecalcifero l (CALCIUM + D3) 600-800 MG-UNIT TABSIndications:Enrique r thinning,Other fatigue Take 1 tablet by mouth daily 01/23/2018 Active Magnesium Citrate 125 MG CAPSIndications:Enrique r thinning,Other fatigue Take 250 mg by mouth daily 01/23/2018 Active naproxen sodium (ANAPROX) 220 MG tabletIndications:H air thinning,Other fatigue Take by mouth 2 times daily (with meals) 60 tablet 01/23/2018 Active Encounters Date Type Department Care Team Description 06/22/2024 9:02 AM CDT - 06/22/2024 11:59 PM CDT Hospital Encounter [facility] [address], [address] [place] [address] Brooke Barbosa CNM Pain of right breast Discharge Disposition: Home or Self Care 06/22/2024 Travel from Last 3 Months Immunizations Name Administration Dates Next Due Td (Adult), Adsorbed 03/22/2017 Family History Medical History Relation Comments Hyperlipidemia Brother 1 Hyperlipidemia Brother 2 Hyperlipidemia Brother 3 Hyperlipidemia Brother 4 No Known Problems Daughter Coronary Artery Disease Father Quadrupl e bypass and valve replacement Diabetes Father Type 2 Lung Cancer Maternal Grandfather smoker No Known Problems Maternal Grandmother Arthritis Mother Liver Disease Mother Primary biliary liver disease Osteoporosis Mother Myocardial Infarction Paternal Grandfather [...] 0 (1 standard drink = 0.6 oz pur e alcohol) very little PHQ-2 Answer Date Recorded PHQ-2 Score 0 10/21/2018 Adolescent Education Answer Date Record ed Getting School Help Needed Not on file 07/13 Sex and Gender Information Value Date Recorded Sex Assigned at Not on file Gender Identity Not on file Sexual Orientation Not on file Last Filed Vital Signs Vital Sign Reading Time Taken Comments Blood Pressure 148/76 01/23/2018 1:35 PM CDT Pulse 84 01/23/2018 1:35 PM CDT Temperature 36.7 ??C (98.1 ??F) 01/23/2018 1:35 PM CD T Respiratory Rate 12 01/23/2018 1:35 PM CDT Oxygen Saturation 96% 01/23/2018 1:35 PM CDT Inhaled Oxygen Concentration - - Weight 58.7 kg (129 lb 6.4 oz) 01/23/2018 1:35 P M CDT Height 165.7 cm (5' 5.25) 01/23/2018 1:35 PM CD T Body Mass Index 21.37 01/23/2018 1:35 PM CDT Plan of Treatment Health Maintenance Due Date Last Done Comments ANNUAL REVIEW OF HM ORDERS 1955 CT COLONOGRAPHY 1955 DEXA 1955 FIT 1955 FLEX SIG 1955 sDNA (Cologuard) 1955 HEPATITIS C SCREENING 1975 LIPID 1997 DTAP/TDAP/TD IMMUNIZATION (1 - Tdap) 03/23/2017 03/22/2017, 03/22/2017 GLUCOSE 01/23/2021 01/23/2018 FALL RISK ASSESSMENT 2022 ADVANCE CARE PLANNING 01/23/2023 01/23/2018 MEDICARE ANNUAL WELLNESS VISIT 04/17/2023 04/17/2022 PHQ-2 (once per calendar year) 2023 01/23/2018 COVID-19 Vaccine ( season) 2024 10/11/2021, 01/31/2021, 01/10/2021 INFLUENZA VACCINE (#1) 2024 , 08/31/2021, 08/10/2020, Additional history exists MAMMO SCREENING 04/09/2026 04/09/2024, 03/15, 04/03/2022, Additional history exists COLONOSCOPY 04/13/2027 04/13/2017, 03/15, 08/10/2008 COLORECTAL CANCER SCREENING 04/13/2027 RSV VACCINE (1 - 1-dose 75+ series) 2032 PAP Discontinued 03/14/2017, 02/15/2015 ZOSTER IMMUNIZATION Completed 01/18/2022, Pneumococcal Vaccine: 65+ Years Completed 08/14/2023, 04/12/2020 HPV IMMUNIZATION Aged Out No longer e ligible based on patient's age to complete this topic MENINGITIS IMMUNIZATION Aged Out No l onger eligible based on patient's age to complete this topic RSV MONOCLONAL ANTIBODY Aged Out No l onger eligible based on patient's age to complete this topic Procedures Procedure Name Priority Date/Time Associated Diagnosis Comments US BREAST RIGHT LIMITED 1-3 QUADRANTS Routine 06/22/2024 9:24 AM CDT Pain of right breast MA SCREENING BILATERAL W/ ZIGGY Routine 04/09/2024 8:59 AM CDT Visit for screening mammogram COMPREHENSIVE METABOLIC PANEL Routine 01/23/2018 2:09 PM CDT Hair thinning Other fatigue PAP SMEAR - HIM PATIENT REPORTED Routine 03/14/2017 COLONOSCOPY Routine 08/10/2008 11:35 AM CDT from Last 3 Months or Most Recently Relevant to Health Maintenance Results * US Breast Right (06/22/2024 9:24 AM CDT) Anatomical Region Laterality Modality Breast Right Ultrasound Impressions 06/22/2024 12:01 PM CDT IMPRESSION: BI-RADS CATEGORY: 1 - ??Negative. RECOMMENDED FOLLOW-UP: Routine yearly mammography beginning at age 40 or as discussed with your provider. ISABELLE RUBIO MD Narrative 06/22/2024 12:01 PM CDT EXAM: US BREAST RIGHT LIMITED 1-3 QUADRANTS, 06/22/2024 9:24 AM HISTORY: Pain COMPARISON: Negative screening mammogram 04/09/2024 FINDINGS: Targeted ultrasound shows normal tissue in the retroareolar right breast and at 6:00 to 8:00 4 cm from the nipple Procedure Note Isabelle Rubio MD - 06/22/2024 EXAM: US BREAST RIGHT LIMITED 1-3 QUADRANTS, 06/22/2024 9:24 AM HISTORY: Pain COMPARISON: Negative screening mammogram 04/09/2024 FINDINGS: Targeted ultrasound shows normal tissue in the retroareolar right breast and at 6:00 to 8:00 4 cm from the nipple IMPRESSION: BI-RADS CATEGORY: 1 - Negative. RECOMMENDED FOLLOW-UP: Routine yearly mammography beginning at age 40 or as discussed with your provider. ISABELLE RUBIO MD Brooke Barbosa [facility] IMG US ORDERABLES * MA Screen Bilateral w/Ziggy (04/09/2024 8:59 AM CDT) Anatomical Region Laterality Modality Breast Bilateral Mammography Impressions 04/09/2024 9:42 AM CDT IMPRESSION: ACR BI-RADS Category 1: Negative BREAST CANCER SCREENING RECOMMENDATION: Routine yearly mammography beginning at age 40 or as discussed with your provider. The results and recommendations of this examination will be communicated to the patient. [place]le Rubio MD Narrative 04/09/2024 9:42 AM CDT BILATERAL FULL FIELD DIGITAL SCREENING MAMMOGRAM WITH TOMOSYNTHESIS Performed on: 04/09/24 Compared to: 04/08/2023, 04/03/2022, and 05/04/2021 Technique: ??This study was evaluated with the assistance of Computer-Aided Detection. ??Breast Tomosynthesis was used in interpretation. Findings: There are scattered areas of fibroglandular density. ??There is no radiographic evidence of malignancy. Sandra Narvaez MD IMG MAMMOGRAPHY ORDERABLES * (ABNORMAL) Comprehensive metabolic panel (01/23/2018 2:09 PM CDT) Sodium 139 133 - 144 mmol/L 01/24/2018 8:25 AM [facility] Potassium 3.9 3.4 - 5.3 mmol/L 01/24/2018 8:25 AM [facility] Chloride 106 94 - 109 mmol/L 01/24/2018 8:25 AM [facility] Carbon Dioxide 26 20 - 32 mmol/L 01/24/2018 8:25 AM [facility] Anion Gap 7 3 - 14 mmol/L 01/24/2018 8:25 AM [facility] Glucose 86 70 - 99 mg/dL 01/24/2018 8:25 AM [facility] Comment:Non Fasting Urea Nitrogen 15 7 - 30 mg/dL 01/24/2018 8:25 AM [facility] Creatinine 0.71 0.52 - 1.04 mg/dL 01/24/2018 8:25 AM [facility] GFR Estimate 84 >60 mL/min/1.7 m2 01/24/2018 8:25 AM [facility] Comment:Non GFR Calc GFR Estimate If Black >90 >60 mL/min/1.7 m2 01/24/2018 8:25 AM [facility] Comment: GFR Calc Calcium 8.3(L) 8.5 - 10.1 mg/dL 01/24/2018 8:25 AM [facility] Bilirubin Total 0.2 0.2 - 1.3 mg/dL 01/24/2018 8:25 AM [facility] Albumin 3.5 3.4 - 5.0 g/dL 01/24/2018 8:25 AM [facility] Protein Total 7.3 6.8 - 8.8 g/dL 01/24/2018 8:25 AM [facility] Alkaline Phosphatase 49 40 - 150 U/L 01/24/2018 8:25 AM [facility] ALT 55(H) 0 - 50 U/L 01/24/2018 8:25 AM [facility] AST 35 0 - 45 U/L 01/24/2018 8:25 AM [facility] Blood specimen (specimen) 01/23/2018 2:09 PM CDT 01/23/2018 2:14 PM CDT Charley Armstrong MD LAB - B LOOD ORDERABLES [facility] [address] [place] [address], [facility] [phone] * PAP Smear - HIM Patient Reported (03/14/2017) PAP Smear - HIM Patient Reported Negative EXTERNAL LAB 03/14/2017 Narrative EXTERNAL LAB - 03/14/2017 Patient Reported: Pt reports normal pap was actually done 03/2017 (not 03/2015 as previously reported) through [facility] envelope patternmaker. ? Patient Reported LABORATORY EXTERNAL LAB External Lab * COLONOSCOPY (08/10/2008 11:35 AM CDT) COLONOSCOPY Endoscopy Patient Name: Janel Ken ?Gender: F ? Procedure Date: 08/10/2008 11:35 AM ? Date of : 1955 ? Age: 52 ? Admit Type: Outpatient ? Attending MD: Farzana Castillo MD ? Procedure: ? Colonoscopy Indications: ? Average risk screening for malignant neoplasm in the ? colon Providers: ? Farzana Castillo MD Referring : ?Jose Armando Mortensen MD Medicines: ? Midazolam 2 mg IV, Fentanyl 100 micrograms IV Complications: ? No immediate complications Procedure: [...] direct vision. Throughout the procedure, ? the patient's blood pressure, pulse, and oxygen ? saturations were monitored continuously. The [id number] ? #[id number] was introduced through the anus and advanced to ? the cecum, identified by appendiceal orifice & IC valve. ? The colonoscopy was performed without difficulty. The ? patient tolerated the procedure well. The quality of the ? prep was good. The prep was adequate to identify polyps. ? Findings: ? The digital rectal exam was normal. Pertinent negatives include normal ? sphincter tone and no palpable rectal lesions. The entire examined colon ? appeared normal. ? Impression: ?- The colon is normal. Recommendation: ?- Repeat colonoscopy in 10 years for surveillance. ? Ruperto Castillo Farzana Castillo MD Signed Date: 08/10/2008 12:31 PM Number of Addenda: 0 I was physically present for the entire viewing portion of the exam. 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
--- OUTSIDE RECORDS SUMMARY | 2024-07-29 08:49 | XMS_ITS | Continuity of Care Document ---
Author Organization [facility] [employer], [id number] Address [address] [address] [place] [address] Assessment No assessment recorded. Plan of Treatment Reminders Order Date Submit Date Provider Last Modified By Organization Details Last Modified Time Details Appointments None recorded. Lab None recorded. Referral breast center referral - Please call patient to schedule appointmen t for pain of right breast [address] [facility], [facility] [address] [facility], [address], 11:30:33 Procedures None recorded. Surgeries None recorded. Imaging MAMMO, diagnostic , digital, bilateral - Please call patient to schedule diagnostic bilateral mammogram and right breast ultrasound for pain. okay for any additional imaging or testing as recommende d by supervisin lucina radiologis t. [address] [facility], [facility] [address] [facility], [place], [address], 4 12:55:19 Medication Orders None recorded. Patient TargetsNo targets recorded. Patient InstructionsNo instructions recorded. Reason for Referral Breast Center Referral for P ain of right breast Pain of right breast Please call patient to schedule appointment for pain of right breast Referring Physician: Brooke Barbosa G[employer] W[employer] EQUIPMENT MECH[employer]IC, Encounter Date: 06/16/2024 Procedures Surgical History Date Name Laterality Status Provider Name and Address Organization Details Recorded Time 04/09/20 24 Date of Last Mammogram completed Kyree Brooks [employer] 04/10/2024 11:32:24 04/19/20 22 Date of Last [place] [address], [place], [address], [facility] [employer] 04/19/2022 22:49:35 10/28/19 22 [facility] 09/10/2023 10:55:32 04/13/20 17 Date of Last Colonoscopy completed Brittnee Bridges(BRENDEN Carmen) [facility] [employer]QU[employer]CH[employer] 04/17/2022 09:28:56 varicose vein stripping completed [facility] [employer]CH[employer]IC 09/10/2023 10:55:32 section completed [facility] [employer] 09/10/2023 10:55:32 Appendectomy completed [facility] [employer] 09/10/2023 10:55:31 Imaging Results None recorded. Procedure Notes None recorded. Medical Equipment None Reported. Allergies No known drug allergies Medications Name Sig Start Date Stop Date Status Note LastModified by Organization Details LastModified Time amoxicillin 500 mg capsule TAKE 1 CAPSULE BY MOUTH THREE TIMES DAILY UNTIL GONE active Not Available Not Available No t Available ofloxacin 0.3 % eye drops INSTILL 1 TO 2 DROPS IN AFFECTED EYE(S) EVERY 2 TO 4 HOURS FOR THE FIRST 2 DAYS THEN 1 TO 2 DROPS 4 TIMES DAILY FOR AN ADDITIONA L 5 DAYS active Not Available Not Available No t Available valacyclovi r 1 gram tablet TAKE 2 TABLETS BY MOUTH TWICE DAILY NEEDED FOR 1 DAY NEEDED FOR FLARE active Not Available Not Available No t Available valacyclovi r 500 mg tablet TAKE 4 TABLETS BY MOUTH AT ONSET OF SYMPTOMS AND 4 TABLETS 12 HOURS LATER active Not Available Not Available No t Available cefadroxil 500 mg capsule TAKE 1 CAPSULE BY MOUTH TWICE DAILY. 09/10 completed Not Available Not Available Not Available cephalexin 500 mg capsule TAKE 1 CAPSULE BY MOUTH THREE TIMES DAILY FOR 5 DAYS 09/10 completed Not Available Not Available Not Available oxybutynin chloride ER 5 mg tablet,exte nded release 24 hr TAKE 1 TABLET BY MOUTH EVERY DAY NEEDED FOR URGENCY active Not Available Not Available No t Available ibuprofen 600 mg tablet TAKE 1 TABLET BY MOUTH EVERY 6 TO 8 HOURS NEEDED FOR PAIN 09/10 completed Not Available Not Available Not Available estradiol 0.01% (0.1 mg/gram) vaginal cream INSERT 1 GRAM VAGINALLY AT BEDTIME FOR 2 WEEKS THEN TWICE WEEKLY active Not Available Not Available No t Available albuterol sulfate HFA 90 mcg/actuati on aerosol inhaler INHALE 2 PUFFS EVERY 4 HOURS NEEDED FOR SHORTNESS OF BREATH OR FOR WHEEZE active Not Available Not Available No t Available diazepam 5 mg tablet TAKE 1 TABLET BY MOUTH 1 HOUR BEFORE DENTAL APPOINTME NT. active Not Available Not Available No t Available oxycodone 5 mg tablet TAKE 1 TO 2 TABLETS BY MOUTH EVERY 4 HOURS NEEDED FOR PAIN . DO NOT EXCEED 6 PER 24 HOURS 09/10 completed Not Available Not Available Not Available bimatoprost 0.03 % drops with applicator, eyelash base 1 DRP TOPICALLY BEDTIME APPLY TOPICALLY TO AFFECTED AREA active Not Available Not Available No t Available Vitals Date Recorded Body height Body mass index (BMI) Body weight Systolic blood pressure Diastolic blood pressure Provider Name and Address Organization Details Last Updated DateTime 06/16/2024 166.37 cm 20.9 kg/m2 91433.1 g 165 mm[Hg] 84 mm[Hg] Pravin Brooks [employer] 09:55:11 Social History Question Answer Notes LastModified by Organizat ion Details LastModified Time Tobacco Smoking Status Never Smoker [facility] [employer] 09/10/2023 08:29:17 Do You Have An Advance Directive? Yes Information not available 09/10/2023 What Is Your Level Of Alcohol Consumption? Occasional 2dr/wk Information not available 09/10/2023 What Is Your Level Of Caffeine Consumption? Moderate 2c/day [email or web address] Information not available 09/10/2023 Which Illicit Or Recreational Drugs Have You Used? Denies Illicit Substance Abuse [email or web address] Information not available 09/10/2023 Children's Names/ Tim Tinajero [email or web address] Information not available 09/10/2023 History Of Domestic Violence No Denies All Domestic Violence Information not available 05/23/2020 Spouse/Partners Name Dale [email or web address] Information not available 09/10/2023 What Is Your Relationship Status? Information not available 09/10/2023 Do You Use Any Illicit Or Recreational Drugs? No Information not available 09/10/2023 Sex: Unknown Functional Status Question Answer Note LastModified by Organizat ion Details LastModified Time What is your exercise level? Occasional Active but no formal exercise Information not available 05/23/2020 Mental Status None recorded. Family History Relationship Description Onset Age of this Age Resolved Age Notes LastModified by Organization Details LastModified Time Mother Disorder of bone and articular cartilage Osteop orosis Not available 05/23/2020 01:08:00 Mother Hyperlipidem ia High Choles terol / Hyperl ipidem ia Not available 05/23/2020 01:08:00 Father Family history of diabetes mellitus Diabet es Not available 05/23/2020 01:08:00 Father Benign essential hypertension Hypert ension Not available 05/23/2020 01:08:00 Father Family history of Cardiovascul ar disease Heart diseas e Not available 05/23/2020 01:08:00 Medical History Condition Response Endocrinology- History of Gestational Di abetes Y Neurology- Headaches/Migraines Y Urology-Other Y Pulmonary- Asthma Y Gynecological History Statement/Question Response History of Gestational Diabetes Y History of Fibroids Y Date of Last Pap Smear 04/19/2022 Date of Last Mammogram 04/09/2024 Date of Last Colonoscopy 04/13/2017 Obstetrics History GPAL:G 2 P 2 0 0 2 Type Value Multiple Births 0 Full Term 2 Induced 0 Spontaneous 0 Premature 0 Living 2 Ectopics 0 Total 2 Immunizations Vaccine Type Date Status Provider Name and Address Organization Details Recorded Time Influenza, recombinant, quadrivalent, PF 08/13/2019 completed Kerri Latham null, [place] - [facility] 09/10/2023 10:55:56 Influenza, recombinant, quadrivalent, PF 08/20/2022 bing Latham null, [place] [facility] 09/10/2023 10:55:56 zoster recombinant 01/18/2022 completed Kerri Latham null, [place] [facility] 09/10/2023 10:55:56 zoster recombinant 08/31/2021 completed [facility] [place] null[place] [facility] 09/10/2023 10:55:56 COVID-19, mRNA, LNP-S, PF, 30 mcg/0.3 mL dose 01/10/2021 completed Kerri Will null, [place] [facility] [employer] 09/10/2023 10:55:56 COVID-19, mRNA, LNP-S, PF, 30 mcg/0.3 mL dose 01/31/2021 completed Kerri Will null, [place] [facility] [employer] 09/10/2023 10:55:56 COVID-19, mRNA, LNP-S, PF, 30 mcg/0.3 mL dose 10/11/2021 completed Kerri Will null, [place] [facility] [employer] 09/10/2023 10:55:56 Pneumococcal conjugate PCV20, polysaccharide [id number] conjugate, adjuvant, PF 08/14/2023 completed Kerri [place] [facility] [employer] 09/10/2023 10:55:56 pneumococcal polysaccharide PPV23 04/12/2020 completed [place]ri [place] [facility] [employer] 09/10/2023 10:55:56 Tdap 03/22/2017 completed Kerri [place] [facility] [employer] 09/10/2023 10:55:56 Influenza, split virus, quadrivalent, PF 07/03/2018 completed Kerri [place] [facility] [employer] 09/10/2023 10:55:56 Influenza, split virus, quadrivalent, PF 08/10/2020 completed [place] [facility] [employer] 09/10/2023 10:55:56 Influenza, split virus, quadrivalent, PF 08/31/2021 completed Ker[place] [facility] [employer] 09/10/2023 10:55:56 Past Encounters Encounter ID Performer Location Encounter Start Date Encounter Closed Date Diagnosis/Indication Diagnosis SNOMED-CT Code Diagnosis ICD10 Code [id number] Brooke Barbosa CNM [id number] [facility] [address] [facility] [address] [place] [id number] 06/16/2024 09:40:47 06/16/2024 11:08:35 Pain of right breast 3466891007 N64.4 Health Concerns Section Related Observation LastModified by Organization Detai ls LastModified Time None Recorded Concern Status LastModified by Organization Details LastModified Time None Recorded Payers Encounter Date Sequence Insurance Name Policy Number Policy Blackman Covered Member ID Blackman Member ID Guarantor Name 06/16/2024 1 [facility] (MEDICARE REPLACEMENT/A DVANTAGE - PPO) [id number] Janel Ken [id number] Janel Ken Notes Date Note Type Note Provider Name and Address Organization Details Recorded Time 06/16/2024 text/html HPI Notes: Breas t Pain ([facility]) Reported by patient. * Quality: sharp; shooting; stabbing; Intermittent shooting pain in right breast * Severity: moderate * Duration: 1 weeks * Timing: Onset: sudden; intermittent * Context: no history of abnormal mammogram; no personal history of breast cancer; no personal history of ovarian cancer; no family history of breast, ovarian, uterine or colon cancer * Associated Signs & Symptoms: no breast mass; no dense breast tissue; no engorgement; no fever; no redness; no skin changes; no nipple discharge; nipple not inverted Screening mammogram in 03/2024 WN Brooke Barbosa CNM [address] [facility],[address], [place], [address], [facility] [employer] 06/16/2024 11:04:01 OBGyn Episode No OBEpisode recorded.
--- OUTSIDE RECORDS SUMMARY | 2024-07-29 08:49 | XMS_ITS | Encounter Summary ---
Author Organization [facility] Address [address] [place] [address]. 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
--- OUTSIDE RECORDS SUMMARY | 2024-07-29 08:49 | XMS_ITS | Referral Summary ---
Author Organization [facility] Address [address] [place] [address]. [place] [address] Care Team Providers Care Substance Abuse Technician Name Role Phone Sandra Narvaez MD Primary Care Provider Encounters Date Type Department Care Team Description 06/22/2024 Travel 06/22/2024 9:02 AM CDT - 06/22/2024 11:59 PM CDT Hospital Encounter [facility] [address], [address] [place] [phone] Brooke Barbosa CNM Pain of right breast Discharge Disposition: Home or Self Care from Last 3 Months Allergies No known active allergies Medications Medication [...] daily (with meals) 60 tablet 01/23/2018 Active Immunizations Name Administration Dates Next Due Td (Adult), Adsorbed 03/22/2017 Social History Tobacco Use Types Packs/Day Years [...] 01/23/2018 1:35 PM CDT Plan of Treatment Not on file Procedures Procedure Name Priority Date/Time Associated Diagnosis [...] with your provider. ISABELLE RUBIO MD Brooke Babrosa [facility] US ORDERABLES * MA Screen Bilateral w/Ziggy [...] 133 - 144 mmol/L 01/24/2018 8:25 AM [facility] Potassium 3.9 3.4 - 5.3 mmol/L 01/24/2018 8:25 AM [facility] Chloride 106 94 - 109 mmol/L 01/24/2018 8:25 AM [facility] Carbon Dioxide 26 20 - 32 mmol/L 01/24/2018 8:25 AM [facility] Anion Gap 7 3 - 14 mmol/L 01/24/2018 8:25 AM [facility] Glucose 86 70 - 99 mg/dL 01/24/2018 8:25 AM [facility] Comment:Non Fasting Urea Nitrogen 15 7 - 30 mg/dL 01/24/2018 8:25 AM [facility] Creatinine 0.71 0.52 - 1.04 mg/dL 01/24/2018 8:25 AM [facility] GFR Estimate 84 >60 mL/min/1.7 m2 01/24/2018 8:25 AM [facility] Comment:Non GFR Calc GFR Estimate If Black >90 >60 mL/min/1.7 m2 01/24/2018 8:25 AM [facility] Comment: GFR Calc Calcium 8.3(L) 8.5 - 10.1 mg/dL 01/24/2018 8:25 AM [facility] Bilirubin Total 0.2 0.2 - 1.3 mg/dL 01/24/2018 8:25 AM [facility] Albumin 3.5 3.4 - 5.0 g/dL 01/24/2018 8:25 AM CDT [facility] Protein Total 7.3 6.8 - 8.8 g/dL 01/24/2018 8:25 AM CDT [facility] Alkaline Phosphatase 49 40 - 150 U/L 01/24/2018 8:25 AM CDT [facility] ALT 55(H) 0 - 50 U/L 01/24/2018 8:25 AM CDT [facility] AST 35 0 - 45 U/L 01/24/2018 8:25 AM CDT [facility] Blood specimen (specimen) 01/23/2018 2:09 PM CDT 01/23/2018 2:14 PM CDT Charley Armstrong MD LAB - B LOOD ORDERABLES Performing Organization Address City/[facility]/ZIP Co de Phone Number [facility] [address] [place] [address], [facility] [phone] * PAP Smear - HIM Patient Reported (03/14/2017) PAP Smear - HIM Patient Reported Negative EXTERNAL LAB 03/14/2017 Narrative EXTERNAL LAB - 03/14/2017 Patient Reported: Pt reports normal pap was actually done 03/2017 (not 03/2015 as previously reported) through [facility] animal attendant. ? Patient Reported LABORATORY EXTERNAL LAB External [...] ? saturations were monitored continuously. The [id number] ? #[id number] was introduced through the anus and advanced [...] Recently Relevant to Health Maintenance Care Teams Substance Abuse Technician Relationship Specialty Start Date End Date Sandra Narvaez MD [address] [facility] [address] [place] [phone] PCP - General clinical physician assistant 07/11/12
--- OUTSIDE RECORDS SUMMARY | 2024-07-29 08:49 | XMS_ITS | Encounter Summary ---
Author Organization [facility] Address [address] [place] [address]. [place] [address] Care Team Providers Care Dispatch Lead Name Role Phone Sandra Narvaez MD Primary Care Provider Reason for Referral * Diagnostic Imaging Ultrasound (Routine) - Pending Review Specialty Diagnoses / Procedures Referred By Contac t Referred To Contact Radiology. Diagnoses Pain of right breast Procedures US Breast Right Brooke Barbosa CNM [address] [address] Referral ID Status Reason Start Date Expiration Date V isits Requested Visits Authorized [id number] Pending Review 06/16/2024 06/16/2025 1 1 Reason for Visit * Diagnostic Imaging Ultrasound (Routine) - Pending Review Specialty Diagnoses / Procedures Referred By Contlatoya perez Referred To Contact Radiology. Diagnoses Pain of right breast Procedures US Breast Right Brooke Barbosa CNM [address] [place] [address] Referral ID Status Reason Start Date Expiration Date V isits Requested Visits Authorized [id number] Pending Review 06/16/2024 06/16/2025 1 1 Encounter Details Date Type Department Care Team (Latest Contact Info) Description 06/22/2024 9:02 AM CDT - 06/22/2024 11:59 PM CDT Hospital Encounter [facility] [address], [address] [place] [address] Brooke Barbosa, CNM [address] [place] [address] Pain of right breast Discharge Disposition: Home or Self Care Social History Tobacco Use Types Packs/Day Years [...] Dispensed Refills Start Date End Date Calcium Carb-Cholecalciferol (CALCIUM + D3) 600-800 MG-UNIT TABSIndications:Hair thinning,Other fatigue Take 1 tablet by mouth daily 01/23/2018 fexofenadine (COLEEN) 180 MG tabletIndications:Hair thinning,Other fatigue Take 1 tablet (180 mg) by mouth daily as needed for allergies 90 tablet 3 01/23/2018 Magnesium Citrate 125 MG CAPSIndications:Hair thinning,Other fatigue Take 250 mg by mouth daily 01/23/2018 naproxen sodium (ANAPROX) 220 MG tabletIndications:Hair thinning,Other fatigue Take by mouth 2 times daily (with meals) 60 tablet 01/23/2018 omega 3 1000 MG CAPSIndications:Hair thinning,Other fatigue Take 2 g by mouth 2 times daily 90 capsule 01/23/2018 progesterone 200 MG/GM (CMPD) topical creamIndications:Hair thinning,Other fatigue Apply topically daily 8 Turmeric 500 MG CAPSIndications:Hair thinning,Other fatigue Take 500 mg by mouth daily 01/23/2018 documented as of this encounter Plan of Treatment Not on file documented as of this encounter Procedures Procedure Name Priority Date/Time Associated Diagnosis Comments US BREAST RIGHT LIMITED 1-3 QUADRANTS Routine 06/22/2024 9:24 AM CDT Pain of right breast documented in this encounter Results * US Breast Right (06/22/2024 9:24 [...] your provider. ISABELLE RUBIO MD Brooke Barbosa [facility] US ORDERABLES documented in this encounter Visit Diagnoses Diagnosis Pain of right breast Mastodynia documented in this encounter Care Teams Dispatch Lead Relationship Specialty Start Date End Date Sandra Narvaez MD [address] [place] [phone] PCP - General swimming teacher 07/11/12 documented as of this encounter
--- OUTSIDE RECORDS SUMMARY | 2024-07-29 08:49 | XMS_ITS | Clinical Summary ---
Author Organization [facility] Address [place], [place] [address] Care Team Providers Care Firearms Expert Name Role Phone Anita Keenan Primary Care Provider [phone] Allergies Active Allergy Reactions Criticality Noted Date Comments Amoxicillin 01/16/2010 Medications Medication Sig Dispensed Refills Start Date End Date Status fexofenadine (COLEEN) 180 mg tablet Take 180 mg by mouth once daily with a meal. Active ALBUTEROL INHL Inhale by mouth each time if needed. Active IBUPROFEN ORAL Take by mouth each time if needed. Active Active Problems Problem Noted Date Diagnosed Date Migraines 01/16/2010 Varicose veins 01/16/2010 Environmental allergies 01/16/2010 Asthma 01/16/2010 Routine health maintenance 01/16/2010 Overview (04/08/2017): Last PAP Smear: 03/2008 Last Breast Exam: 03/2008 Last Mammogram: 02/2009 Last Lipids: 09/2006 Last Colonoscopy: 07/2008 Colonoscopy 03/2017 normal repeat in 10 years Family History Medical History Relation Name Comments Diabetes Father Heart Disease Father Hypertension Father Stroke Father Relation Name Status Comments Father Social History Tobacco Use Types Packs/Day Years Used Date Smoking Tobacco: Never Alcohol Use Standard Drinks/Week Comments Not Asked 0 (1 standard drink = 0.6 oz pur e alcohol) Sex and Gender Information Value Date Recorded Sex Assigned at Not on file Gender Identity Not on file Sexual Orientation Not on file Obstetrics History Plan of Treatment Health Maintenance Due Date Last Done Comments Tdap 1968 Depression screening for age 12+ 1969 BMI (ht and wt on same day) for age 18+ 1975 Hepatitis C screening for age 18-79 1975 Tetanus booster 1977 Lipids for age 45-75 2002 Mammogram for age 45-75 2002 Zoster (shingles) series for age 50+ (1 of 2) 2007 DEXA/DXA scan for age 65+ 2022 Pneumococcal series for age 65+ (1 of 1 - PCV) 2022 COVID-19 vaccine series (1 - season) 2024 Influenza for age 65+ 06/14/2024 Colonoscopy through age 75 04/08/202704/08, 04/08/2017, 04/08/2017 Procedures Procedure Name Priority Date/Time Associated Diagnosis Comments SCAN-COLONOSCOPY 04/08/2017 12:0 0 AM CDT from Last 3 Months or Most Recently Relevant to Health Maintenance Results * SCAN-COLONOSCOPY (04/08/2017 12:00 AM CDT) Scanner OTHER from Last 3 Months or Most Recently Relevant to Health Maintenance Care Teams Firearms Expert Relationship Specialty Start Date End Date Anita Keenan PCP - General Family Practice 03/13/17
== END 2024-07-29 08:45 | disposition home or self-care (01) ==
PROVIDERS: PCP Family Medicine; Visit Provider Emergency Medicine
DX: R53.83 Other fatigue (principal); R73.03 Prediabetes; M81.0 Age-related osteoporosis without current pathological fracture; Z13.6 Encounter for screening for cardiovascular disorders
CPT/HCPCS: 80053; 80061; 82306; 84100

== ENCOUNTER 2025-07-20 07:04 | Outpatient (CLI) | payer MEDICARE, SELFPAY ==
--- NOTE | 2025-07-20 08:34 | P.ANES_ITS ---
Anesthesia Charges Start Date/Time Anesthesia Start Date: 07/20/25 Anesthesia Start Time: 08:08 Stop Date/Time Anesthesia Stop Date: 07/20/25 Anesthesia Stop Time: 08:35 Coding CPT Codes CPT Codes: KALEIGH LWR INTST NDSC NOS - 11641 ([id number]) P2 - PATIENT W/MILD SYST DISEASE, QK - EQUIPMENT OPERATOR/LABORER 2-4 CNCRNT ANES PROC, QX - PODIATRIC FOOT AND ANKLE SPECIALIST SVC W/ MD MED DIRECTION
--- NOTE | 2025-07-20 08:34 | W.ANESCHARGE ---
Anesthesia Charges Start Date/Time Anesthesia Start Date: 07/20/25 Anesthesia Start Time: 08:08 Stop Date/Time Anesthesia Stop Date: 07/20/25 Anesthesia Stop Time: 08:35 Coding CPT Codes CPT Codes: KALEIGH LWR INTST NDSC NOS - 78451 ([id number]) P2 - PATIENT W/MILD SYST DISEASE, QK - TAXATION CONSULTANT 2-4 CNCRNT ANES PROC, QX - PHOSPHORIC ACID SUPERVISOR SVC W/ MD MED DIRECTION
--- NOTE | 2025-07-20 09:39 | P.ANES_ITS ---
Anesthesia Charges Start Date/Time Anesthesia Start Date: 07/20/25 Anesthesia Start Time: 08:08 Stop Date/Time Anesthesia Stop Date: 07/20/25 Anesthesia Stop Time: 08:35 Coding CPT Codes CPT Codes: KALEIGH HEADLEY INTST NDSC NOS - 38494 ([id number]) P2 - PATIENT W/MILD SYST DISEASE, QX - MINER OPERATOR SVC W/ MD MED DIRECTION, QK - DAMPER FITTER 2-4 CNCRNT ANEBetsy PROC
--- NOTE | 2025-07-20 09:39 | W.ANESCHARGE ---
Anesthesia Charges Start Date/Time Anesthesia Start Date: 07/20/25 Anesthesia Start Time: 08:08 Stop Date/Time Anesthesia Stop Date: 07/20/25 Anesthesia Stop Time: 08:35 Coding CPT Codes CPT Codes: KALEIGH HEADLEY INTST NDSC NOS - 90843 ([id number]) P2 - PATIENT W/MILD SYST DISEASE, QX - FLIGHT TECHNICIAN SVC W/ MD MED DIRECTION, QK - NUCLEAR MEDICINE CHIEF TECHNOLOGIST 2-4 CNCRNT ANEBetsy PROC
== END 2025-07-20 07:05 | disposition home or self-care (01) ==
LOC: OP CLINIC 07:05
PROVIDERS: PCP Family Medicine; Visit Provider Surgery
DX: K59.00 Constipation, unspecified (principal); R19.7 Diarrhea, unspecified
CPT/HCPCS: 00811; 45380; J2704